=== PATIENT | male | born 1950 | race Caucasian/White ===

== ENCOUNTER → 2016-11-30 | Outpatient (CLI) | payer OTHER, MEDICARE | LOC: BHLMT 09:30 | PROVIDERS: ATTEND Internal Medicine Cardiovascular Disease | DX: I48.0 Paroxysmal atrial fibrillation (principal); I45.10 Unspecified right bundle-branch block; I49.1 Atrial premature depolarization | CPT/HCPCS: 93005-PO ==

== ENCOUNTER 2017-02-18 20:09 | Observation (INO) | payer OTHER, MEDICARE ==
--- NOTE | 2017-02-18 20:11 | EDPHY ---
HPI/HX/ROS/PE/MDM Narrative: CHIEF COMPLAINT: Syncope, dizziness HPI: The patient is a 66 y/o male, with a history of atrial flutter and aplastic anemia, arriving via EMS complaining of acute onset dizziness and subsequent syncope about 45 minutes ago. He was at a work dinner and felt a sudden contreras of dizziness, shortness of breath, and nausea. Per bystanders, he then lost consciousness and fell into another person before hitting the ground and suffering a small laceration to his face. He became alert within 1 minute. EMS reports he was initially hypotensive at 80/palp. His symptoms and blood pressure improved with 1L IV NS and 4mg IV Zofran en route. He denies chest pain , palpitations, dark or bloody stools, recent illness, or recent trauma. He notes he may have a taken double dose of beta blockers this morning and says he has "not felt great for the last couple days," but he is unable to further qualify this. He consumed 1/3 glass of wine tonight at dinner. REVIEW OF SYSTEMS: Aside from elements discussed in the HPI, a comprehensive 10-point review of systems was reviewed and is negative. PMH: 2014 - Subdural hematoma post craniotomy, TBI, ablation, palpitations, cardioversion 2015, aplastic anemia, hypertension - Metoprolol Prior medical records reviewed including PT report 06/01/14, and ED visit 02/15/15 for rapid heart rate with subsequent cardioversion SOCIAL HISTORY: Lives in [place]. . PHYSICAL EXAM: General:Patient is alert, in no acute distress. ENT:Eyes are normal to inspection. ENT inspection normal. Neck: Normal inspection. Full range of motion. Respiratory:No respiratory distress. Breath sounds normal bilaterally. Cardiovascular: Tachycardic irregular rate and rhythm. Strong peripheral pulses. Normal cap refill. Abdomen:The abdomen is nontender to palpation. There are no peritoneal signs. There are normal bowel sounds. Back: Normal to inspection. No tenderness to palpation. Skin: Normal color. No rash. Warm and dry. Small non-suturable laceration to left lateral face. Extremities: Normal appearance. Full range of motion. Neuro: Oriented x3. Normal motor function. Normal sensory function. ED Course: IV established by EMS. Labs drawn including CBC, CHEM, d-dimer, troponin. 1L IV NS administered. EKG and chest x-ray ordered. The 12 lead EKG was interpreted by myself. Sinus rhythm rate 71 with multiple PACs. RBBB and LPFB. See hard copy and/or "tracemaster" electronic copy for interpretation. 2025: Patient had an episode of atrial flutter on the monitor that spontaneously converted to sinus rhythm. 2109: Hct low at 22.9. He reports he has a history of aplastic anemia. Additional labs ordered including type&screen, occult stool, PTPTT, and LFTs. Patient will require admission for anemia. Study: Chest x-ray Indication: syncope Results: Chest x-ray was obtained. The results of the study are 1.Compensated CHF with chronic or recurrent pulmonary venous hypertension. 2. Likely a prominent right epicardial fat pad rather than right middle lobe atelectasis. The study was read by the radiologist, Dr. Michelle. I viewed the images myself on the PACS system. 2129: I was informed the Hct is not an accurate result. They are redoing labs at this time. 2217: Actual Hct is 42.4. I discussed findings with the patient and answered all his questions. He agrees to admission for atrial flutter and syncope. Spoke with hospitalist service. Dr. Ferguson accepts admission. - Data Points Laboratory Results: Laboratory Results 02/18/17 21:50 02/18/17 21:50 02/18/17 02/18/17 02/18/17 21:50 21:50 21:50 WBC 9.07 10^3/uL 10^3/uL (3.80-9.50) RBC 4.43 10^6/uL 10^6/uL (4.40-6.38) Hgb 14.7 g/dL g/dL (13.7-17.5) Hct 42.4 % D % (40.0-51.0) MCV 95.7 fL fL (81.5-99.8) MCH 33.2 pg pg (27.9-34.1) MCHC 34.7 g/dL g/dL (32.4-36.7) RDW 11.6 % % (11.5-15.2) Plt Count 194 10^3/uL D 10^3/uL (150-400) MPV 9.2 fL fL (8.7-11.7) Neut % (Auto) 81.8 % H % (39.3-74.2) Lymph % (Auto) 10.3 % L % (15.0-45.0) Worth % (Auto) 6.5 % % (4.5-13.0) Eos % (Auto) 0.8 % % (0.6-7.6) Baso % (Auto) 0.3 % % (0.3-1.7) Nucleat RBC Rel Count 0.0 % % (0.0-0.2) Absolute Neuts (auto) 7.42 10^3/uL H 10^3/uL (1.70-6.50) Absolute Lymphs (auto) 0.93 10^3/uL L 10^3/uL (1.00-3.00) Absolute Monos (auto) 0.59 10^3/uL 10^3/uL (0.30-0.80) Absolute Eos (auto) 0.07 10^3/uL 10^3/uL (0.03-0.40) Absolute Basos (auto) 0.03 10^3/uL 10^3/uL (0.02-0.10) Absolute Nucleated RBC 0.00 10^3/uL 10^3/uL (0-0.01) Immature Gran % 0.3 % % (0.0-1.1) Immature Gran # 0.03 10^3/uL 10^3/uL (0.00-0.10) PT 13.8 SEC SEC (12.0-15.0) INR 1.07 (0.83-1.16) APTT 23.2 SEC SEC (23.0-38.0) D-Dimer Sodium 136 mEq/L mEq/L (134-144) Potassium 4.4 mEq/L mEq/L (3.5-5.2) Chloride 106 mEq/L D mEq/L (97-110) Carbon Dioxide 24 mEq/l D mEq/l (22-31) Anion Gap 6 mEq/L L mEq/L (8-16) BUN 17 mg/dL mg/dL (7-23) Creatinine 1.0 mg/dL D mg/dL (0.7-1.3) Estimated GFR > 60 Glucose 95 mg/dL D mg/dL (70-100) Calcium 9.1 mg/dL D mg/dL (8.5-10.4) Total Bilirubin 1.2 mg/dL D mg/dL (0.1-1.4) Conjugated Bilirubin 0.4 mg/dL mg/dL (0.0-0.5) Unconjugated Bilirubin 0.8 mg/dL mg/dL (0.0-1.1) AST 23 IU/L IU/L (-59) ALT 38 IU/L IU/L (21-72) Alkaline Phosphatase 44 IU/L IU/L (38-126) Troponin I < 0.012 ng/mL ng/mL (0-0.034) Total Protein 6.2 g/dL L D g/dL (6.3-8.2) Albumin 3.8 g/dL D g/dL (3.5-5.0) Patient ABO/Rh Antibody Screen 02/18/17 02/18/17 02/18/17 21:30 21:13 21:13 WBC RBC Hgb Hct MCV MCH MCHC RDW Plt Count MPV Neut % (Auto) Lymph % (Auto) Worth % (Auto) Eos % (Auto) Baso % (Auto) Nucleat RBC Rel Count Absolute Neuts (auto) Absolute Lymphs (auto) Absolute Monos (auto) Absolute Eos (auto) Absolute Basos (auto) Absolute Nucleated RBC Immature Gran % Immature Gran # PT 21.4 SEC H SEC (12.0-15.0) INR 1.85 H (0.83-1.16) APTT 31.4 SEC SEC (23.0-38.0) D-Dimer Sodium Potassium Chloride Carbon Dioxide Anion Gap BUN Creatinine Estimated GFR Glucose Calcium Total Bilirubin 0.3 mg/dL mg/dL (0.1-1.4) Conjugated Bilirubin 0.2 mg/dL mg/dL (0.0-0.5) Unconjugated Bilirubin 0.1 mg/dL mg/dL (0.0-1.1) AST 5 IU/L L IU/L (-59) ALT 21 IU/L IU/L (21-72) Alkaline Phosphatase < 20 IU/L L IU/L (38-126) Troponin I Total Protein < 2.0 g/dL L g/dL (6.3-8.2) Albumin < 1.0 g/dL L g/dL (3.5-5.0) Patient ABO/Rh Pending Antibody Screen Pending 02/18/17 02/18/17 02/18/17 20:54 20:54 20:54 WBC 5.18 10^3/uL 10^3/uL (3.80-9.50) RBC 2.29 10^6/uL L 10^6/uL (4.40-6.38) Hgb 7.9 g/dL L g/dL (13.7-17.5) Hct 22.9 % L % (40.0-51.0) MCV 100.0 fL H fL (81.5-99.8) MCH 34.5 pg H pg (27.9-34.1) MCHC 34.5 g/dL g/dL (32.4-36.7) RDW 11.7 % % (11.5-15.2) Plt Count 107 10^3/uL L 10^3/uL (150-400) MPV 9.6 fL fL (8.7-11.7) Neut % (Auto) 81.5 % H % (39.3-74.2) Lymph % (Auto) 10.4 % L % (15.0-45.0) Worth % (Auto) 6.0 % % (4.5-13.0) Eos % (Auto) 1.5 % % (0.6-7.6) Baso % (Auto) 0.2 % L % (0.3-1.7) Nucleat RBC Rel Count 0.0 % % (0.0-0.2) Absolute Neuts (auto) 4.22 10^3/uL 10^3/uL (1.70-6.50) Absolute Lymphs (auto) 0.54 10^3/uL L 10^3/uL (1.00-3.00) Absolute Monos (auto) 0.31 10^3/uL 10^3/uL (0.30-0.80) Absolute Eos (auto) 0.08 10^3/uL 10^3/uL (0.03-0.40) Absolute Basos (auto) 0.01 10^3/uL L 10^3/uL (0.02-0.10) Absolute Nucleated RBC 0.00 10^3/uL 10^3/uL (0-0.01) Immature Gran % 0.4 % % (0.0-1.1) Immature Gran # 0.02 10^3/uL 10^3/uL (0.00-0.10) PT INR APTT D-Dimer < 0.27 ug/mLFEU ug/mLFEU (0.00-0.50) Sodium 144 mEq/L mEq/L (134-144) Potassium 1.2 mEq/L L* mEq/L (3.5-5.2) Chloride 133 mEq/L H mEq/L (97-110) Carbon Dioxide 9 mEq/l L* mEq/l (22-31) Anion Gap 2 mEq/L L mEq/L (8-16) BUN 6 mg/dL L mg/dL (7-23) Creatinine 0.3 mg/dL L mg/dL (0.7-1.3) Estimated GFR > 60 Glucose 30 mg/dL L* mg/dL (70-100) Calcium 2.2 mg/dL L* mg/dL (8.5-10.4) Total Bilirubin Conjugated Bilirubin Unconjugated Bilirubin AST ALT Alkaline Phosphatase Troponin I < 0.012 ng/mL ng/mL (0-0.034) Total Protein Albumin Patient ABO/Rh Antibody Screen Medications Given: Discontinued Medications Sodium Chloride (Ns) 1,000 mls @ 0 mls/hr IV ONCE ONE PRN Reason: Wide Open Stop: 02/18/17 20:15 Last Admin: 02/18/17 20:39 Dose: 1,000 mls General Initial Vital Signs: Initial Vital Signs Temperature (C) 36.5 C 02/18/17 20:26 Heart Rate 122 H 02/18/17 20:26 Respiratory Rate 18 02/18/17 20:26 Blood Pressure 126/70 H 02/18/17 20:26 O2 Sat (%) 93 02/18/17 20:26 O2 Delivery Mode Room Air Allergies/Adverse Reactions: No Known Allergies Allergy (Unverified 02/15/15 11:59) Home Medications: Medication Instructions Recorded Sotalol HCl [Betapace] 80 mg PO BID 02/15/15 Tamsulosin HCl [Flomax] 0.4 mg PO DAILY 02/15/15 Metoprolol Succinate 02/18/17 Departure - Departure Disposition: [facility] Inpatient Acute Clinical Impression: Syncope Qualifiers: Syncope type: unspecified Qualified Code(s): R55 - Syncope and collapse Atrial flutter Qualifiers: Atrial flutter type: unspecified Qualified Code(s): I48.92 - Unspecified atrial flutter Condition: Good Referrals: Patient,NotPresent [Unknown] - As per Instructions Report Scribed for: Junior Lee Report Scribed by: Damari Lama Date of Report: 02/18/17 Time of Report: 20:02 Physician Review and Approval Statement: Portions of this note were transcribed by an ED scribe. I personally performed the history, physical exam, and medical decision making; and confirm the accuracy of the information in the transcribed note.
[2017-02-18] MEDS ORDERED: NS 1,000 ML IV ONE (20:14)
--- NOTE | 2017-02-18 20:23 | CPEKG ---
Heart Rate: 71 RR Interval: 845 P-R Interval: 144 QRSD Interval: 166 QT Interval: 452 QTC Interval: 492 P [place]: -31 QRS [place]: 98 T Wave [place]: -3 EKG Severity - ABNORMAL ECG - EKG Impression: SINUS RHYTHM EKG Impression: MULTIPLE ATRIAL PREMATURE COMPLEXES -- New since February 15, 2015 EKG Impression: RBBB AND LPFB Electronically Signed By: Gonsalo Moore 19-Feb-2017 18:09:36
[2017-02-18 21:04] LABS: % IMMATURE GRANULYOCYTES 0.4 % (0.0-1.1); ABSOLUTE IMMATURE GRANULOCYTES 0.02 10^3/uL (0.00-0.10); ADD DIFF? NO; ADD MORPH? NO; ADD SCAN? NO; ATYPICAL LYMPHOCYTE FLAG 0 (0-99); FRAGMENT RBC FLAG 0 (0-99); HEMATOCRIT 22.9 % (40.0-51.0); HEMOGLOBIN 7.9 g/dL (13.7-17.5); LEFT SHIFT FLG 0 (0-99); LIPEMIA HEMOLYSIS FLAG 90 (0-99); MEAN CELL HEMOGLOBIN 34.5 pg (27.9-34.1); MEAN CELL HEMOGLOBIN CONCENTR. 34.5 g/dL (32.4-36.7); MEAN PLATELET VOLUME 9.6 fL (8.7-11.7); PLATELET CLUMPS FLAG 10 (0-99); PLATELET COUNT 107 10^3/uL (150-400); RED BLOOD CELL COUNT 2.29 10^6/uL (4.40-6.38); RED CELL DISTRIBUTION WIDTH 11.7 % (11.5-15.2)
[2017-02-18 21:26] LABS: INR 1.85 (0.83-1.16); PROTIME(PATIENT) 21.4 SEC (12.0-15.0)
[2017-02-18 21:27] LABS: APTT 31.4 SEC (23.0-38.0)
[2017-02-18 21:33] LABS: ANION GAP 2 mEq/L (8-16); CHLORIDE 133 mEq/L (97-110); CREATININE 0.3 mg/dL (0.7-1.3); GLOMERULAR FILTRATION RATE > 60; SODIUM 144 mEq/L (134-144)
[2017-02-18 21:35] LABS: ALANINE AMINOTRANSFERASE 21 IU/L (21-72); ASPARTATE AMINOTRANSFERASE 5 IU/L (17-59); BILIRUBIN,TOTAL 0.3 mg/dL (0.1-1.4); BILIRUBIN-CONJUGATED 0.2 mg/dL (0.0-0.5); BILIRUBIN-UNCONJUGATED 0.1 mg/dL (0.0-1.1)
[2017-02-18 21:37] LABS: CALCIUM 2.2 mg/dL (8.5-10.4); CARBON DIOXIDE 9 mEq/l (22-31); GLUCOSE 30 mg/dL (70-100); POTASSIUM 1.2 mEq/L (3.5-5.2)
[2017-02-18 21:38] LABS: ALBUMIN < 1.0 g/dL (3.5-5.0); TOTAL PROTEIN < 2.0 g/dL (6.3-8.2)
[2017-02-18 21:39] LABS: ALKALINE PHOSPHATASE < 20 IU/L (38-126)
[2017-02-18 21:44] LABS: TROPONIN I < 0.012 ng/mL (0-0.034)
[2017-02-18 22:03] LABS: % IMMATURE GRANULYOCYTES 0.3 % (0.0-1.1); ABSOLUTE IMMATURE GRANULOCYTES 0.03 10^3/uL (0.00-0.10); ADD DIFF? NO; ADD MORPH? NO; ADD SCAN? NO; ATYPICAL LYMPHOCYTE FLAG 0 (0-99); FRAGMENT RBC FLAG 0 (0-99); HEMATOCRIT 42.4 % (40.0-51.0); HEMOGLOBIN 14.7 g/dL (13.7-17.5); LEFT SHIFT FLG 0 (0-99); LIPEMIA HEMOLYSIS FLAG 90 (0-99); MEAN CELL HEMOGLOBIN 33.2 pg (27.9-34.1); MEAN CELL HEMOGLOBIN CONCENTR. 34.7 g/dL (32.4-36.7); MEAN CELL VOLUME 95.7 fL (81.5-99.8); MEAN PLATELET VOLUME 9.2 fL (8.7-11.7); PLATELET CLUMPS FLAG 0 (0-99); PLATELET COUNT 194 10^3/uL (150-400); RED BLOOD CELL COUNT 4.43 10^6/uL (4.40-6.38); RED CELL DISTRIBUTION WIDTH 11.6 % (11.5-15.2)
[2017-02-18 22:12] LABS: ANION GAP 6 mEq/L (8-16); CALCIUM 9.1 mg/dL (8.5-10.4); CARBON DIOXIDE 24 mEq/l (22-31); CHLORIDE 106 mEq/L (97-110); GLOMERULAR FILTRATION RATE > 60; GLUCOSE 95 mg/dL (70-100); POTASSIUM 4.4 mEq/L (3.5-5.2); SODIUM 136 mEq/L (134-144)
[2017-02-18 22:18] LABS: APTT 23.2 SEC (23.0-38.0); INR 1.07 (0.83-1.16); PROTIME(PATIENT) 13.8 SEC (12.0-15.0)
[2017-02-18 22:23] LABS: ALANINE AMINOTRANSFERASE 38 IU/L (21-72); ALBUMIN 3.8 g/dL (3.5-5.0); ALKALINE PHOSPHATASE 44 IU/L (38-126); ASPARTATE AMINOTRANSFERASE 23 IU/L (17-59); BILIRUBIN,TOTAL 1.2 mg/dL (0.1-1.4); BILIRUBIN-CONJUGATED 0.4 mg/dL (0.0-0.5); BILIRUBIN-UNCONJUGATED 0.8 mg/dL (0.0-1.1); TOTAL PROTEIN 6.2 g/dL (6.3-8.2)
[2017-02-18 22:24] LABS: TROPONIN I < 0.012 ng/mL (0-0.034)
[2017-02-18] MEDS ORDERED: ACETAMINOPHEN 325 MG TAB PO PRN (23:02)
[2017-02-19] MEDS ORDERED: NS 500 ML IV ONE (00:19)
[2017-02-19] MEDS ORDERED: NS 1,000 ML IV SCH (00:30)
--- NOTE | 2017-02-19 04:08 | PDGENHP ---
History and Physical - Chief Complaint syncope - History of Present Illness Patient was seen and examined on 02/18/2017. Patient is a 66-year-old male with history of known atrial fibrillation currently on metoprolol and sotalol for rate control, not on systemic anticoagulation, also history of TBI with minimal residual deficits, who presents to the ED after a syncopal episode. Patient states he was at a dinner green party, was walking from the kitchen to the dining room table with a bowl of soup in his hands when he was suddenly over come with dizziness, diaphoresis, nausea and darkening of his vision. Shortly thereafter patient lost consciousness, falling backwards into the arms of someone was standing directly behind him. Episode was witnessed by patient's and she states he did not hit his head on the floor, but he did suffer an abrasion to his left eye possibly from the bowl of soup. He aroused within a minute and EMS was called. On EMS arrival, patient was noted to be hypotensive and tachycardic to 140 range. He denies any chest pain associated with the incident. He also denies any recent fevers, chills, cough, congestion, shortness of breath , abdominal pain or vomiting. He does state that about 2 weeks ago he had some diarrhea associated with a lack of appetite, which had been improving over the past week. Arrival to the ED patient was afebrile, with normal BP however was tachycardic. EKG revealed AFib without obvious ischemic changes. Labs were within normal limits, including troponin (1st set of labs listed in [facility] were not correct) . He was given IV fluid resuscitation and admitted to the hospitalist service for further management. History Information - Allergies/Home Medication List Allergies/Adverse Reactions: No Known Allergies Allergy (Unverified 02/15/15 11:59) Home Medications: Sotalol HCl [Betapace] 80 mg PO BID 02/15/15 [Last Taken Unknown] Tamsulosin HCl [Flomax] 0.4 mg PO DAILY 02/15/15 [Last Taken Unknown] Metoprolol Succinate 02/18/17 [Last Taken Unknown] I have personally reviewed and updated: family history, medical history, social history, surgical history - Past Medical History Additional medical history: Afib/Aflutter s/p 3 cardioversions and 1 ablation, currently on metoprolol and sotalol for rate control. h/o TBI with resulting subdural hematoma. hypertension. aplastic anemia - Surgical History Additional surgical history: craniotomy. afib ablation. tonsillectomy. small bowel obstruction - Family History Positive for: diabetes type II - Social History Smoking Status: Never smoked Alcohol Use: Occasionally Drug Use: None Additional social history: Patient lives with his , continues to work. Review of Systems ROS: 10pt was reviewed & negative except for what was stated in HPI & below Physical Exam Temp Pulse Resp BP Pulse Ox 36.6 C 82 16 123/78 H 98 02/18/17 23:25 02/18/17 23:25 02/18/17 23:25 02/18/17 23:25 02/18/17 23:25 Constitutional: no apparent distress, appears nourished, not in pain Eyes: PERRL, anicteric sclera, EOMI Ears, Nose, Mouth, Throat: moist mucous membranes, hearing normal, ears appear normal, no oral mucosal ulcers Cardiovascular: no murmur, rub, or gallop, irregularly irregular, pulses symmetric bilaterally, No JVD, No edema Peripheral Pulses: 2+: dorsalis-pedis (R), dorsalis-pedis (L) Respiratory: no respiratory distress, no rales or rhonchi, clear to auscultation Gastrointestinal: normoactive bowel sounds, soft, non-tender abdomen, no palpable masses, No guarding, No rebound, No distension Genitourinary: no bladder fullness, no bladder tenderness Skin: warm, normal color, no fluctuance, no induration, other (small abrasion on L outer eyebrow), No mottled Musculoskeletal: full muscle strength, no muscle tenderness, normal joint ROM, no joint effusions Neurologic: AAOx3, sensation intact bilaterally, CN II-XII Intact, No weakness, No numbness, No pronator drift, No facial droop Psychiatric: interacting appropriately, not anxious, not encephalopathic, thought process linear Lab Data & Imaging Review 02/18/17 21:50 02/18/17 21:50 WBC 9.07 10^3/uL (3.80-9.50) 02/18/17 21:50 RBC 4.43 10^6/uL (4.40-6.38) 02/18/17 21:50 Hgb 14.7 g/dL (13.7-17.5) 02/18/17 21:50 Hct 42.4 % (40.0-51.0) D 02/18/17 21:50 MCV 95.7 fL (81.5-99.8) 02/18/17 21:50 MCH 33.2 pg (27.9-34.1) 02/18/17 21:50 MCHC 34.7 g/dL (32.4-36.7) 02/18/17 21:50 RDW 11.6 % (11.5-15.2) 02/18/17 21:50 Plt Count 194 10^3/uL (150-400) D 02/18/17 21:50 MPV 9.2 fL (8.7-11.7) 02/18/17 21:50 Neut % (Auto) 81.8 % (39.3-74.2) H 02/18/17 21:50 Lymph % (Auto) 10.3 % (15.0-45.0) L 02/18/17 21:50 [place] % (Auto) 6.5 % (4.5-13.0) 02/18/17 21:50 Eos % (Auto) 0.8 % (0.6-7.6) 02/18/17 21:50 Baso % (Auto) 0.3 % (0.3-1.7) 02/18/17 21:50 Nucleat RBC Rel Count 0.0 % (0.0-0.2) 02/18/17 21:50 Absolute Neuts (auto) 7.42 10^3/uL (1.70-6.50) H 02/18/17 21:50 Absolute Lymphs (auto) 0.93 10^3/uL (1.00-3.00) L 02/18/17 21:50 Absolute Monos (auto) 0.59 10^3/uL (0.30-0.80) 02/18/17 21:50 Absolute Eos (auto) 0.07 10^3/uL (0.03-0.40) 02/18/17 21:50 Absolute Basos (auto) 0.03 10^3/uL (0.02-0.10) 02/18/17 21:50 Absolute Nucleated RBC 0.00 10^3/uL (0-0.01) 02/18/17 21:50 Immature Gran % 0.3 % (0.0-1.1) 02/18/17 21:50 Immature Gran # 0.03 10^3/uL (0.00-0.10) 02/18/17 21:50 PT 13.8 SEC (12.0-15.0) 02/18/17 21:50 INR 1.07 (0.83-1.16) 02/18/17 21:50 APTT 23.2 SEC (23.0-38.0) 02/18/17 21:50 D-Dimer < 0.27 ug/mLFEU (0.00-0.50) 02/18/17 20:54 Sodium 136 mEq/L (134-144) 02/18/17 21:50 Potassium 4.4 mEq/L (3.5-5.2) 02/18/17 21:50 Chloride 106 mEq/L (97-110) D 02/18/17 21:50 Carbon Dioxide 24 mEq/l (22-31) D 02/18/17 21:50 Anion Gap 6 mEq/L (8-16) L 02/18/17 21:50 BUN 17 mg/dL (7-23) 02/18/17 21:50 Creatinine 1.0 mg/dL (0.7-1.3) D 02/18/17 21:50 Estimated GFR > 60 02/18/17 21:50 Glucose 95 mg/dL (70-100) D 02/18/17 21:50 Calcium 9.1 mg/dL (8.5-10.4) D 02/18/17 21:50 Magnesium 1.7 mg/dL (1.6-2.3) 02/18/17 21:50 Total Bilirubin 1.2 mg/dL (0.1-1.4) D 02/18/17 21:50 Conjugated Bilirubin 0.4 mg/dL (0.0-0.5) 02/18/17 21:50 Unconjugated Bilirubin 0.8 mg/dL (0.0-1.1) 02/18/17 21:50 AST 23 IU/L (17-59) 02/18/17 21:50 ALT 38 IU/L (21-72) 02/18/17 21:50 Alkaline Phosphatase 44 IU/L (38-126) 02/18/17 21:50 Troponin I < 0.012 ng/mL (0-0.034) 02/18/17 21:50 Total Protein 6.2 g/dL (6.3-8.2) L D 02/18/17 21:50 Albumin 3.8 g/dL (3.5-5.0) D 02/18/17 21:50 Patient ABO/Rh A POSITIVE 02/18/17 21:30 Antibody Screen NEGATIVE 02/18/17 21:30 Visualized and Interpreted Chest x-ray results: Yes Chest X-Ray results: no infiltrate Visualized and Interpreted EKG results: Yes EKG additional interpertation: afib without st/ t wave changes Assessment & Plan Assessment: Patient is a 66-year-old male with a history of atrial fib/flutter, hypertension , history of TBI who presents to the ED after syncopal episode. Plan: # syncope Etiology of syncope includes cardiac vs hypovolemic/orthostatic vs neurogenic/ vasovagal. Patient does report a history of diarrhea recently, which has largely resolved and labs do not indicate he is significantly dehydrated. Patient is nonfocal on exam, at his baseline neuro status. Suspect syncope was related to AF with RVR given his reported tachycardia and hypotension on EMS evaluation. Since arrival to ED, patient has converted to NSR. Will continue IVF hydration, check TTE and carotid dopplers and monitor cardiac enzymes/ serial EKGs to r/o acs. # Afib/Aflutter On sotalol and metoprolol for rhythm/rate control, but not presently on systemic anticoagulation. CHADSVaSC score is 2 (age, hypertension). Will assess with cardiology regarding risks/benefits of AC, given his prior history of TBI with intracranial hemorrhage (shouldn't be a contraindication). # hypertension BP stable after IVF resuscitation. # dispo: admit to observation for syncope work up # gen: NPO Full code
[2017-02-19] MEDS ORDERED: PROTOCOL POTASSIUM 1 DOSE MISC PRN (04:10)
[2017-02-19] MEDS ORDERED: MAGNESIUM SULF 1 GM/DEXTROSE 100 ML IV ONE (04:10)
[2017-02-19] MEDS ORDERED: PROTOCOL MAGNESIUM 1 DOSE IV PRN (04:10)
[2017-02-19 05:14] LABS: % IMMATURE GRANULYOCYTES 0.4 % (0.0-1.1); ABSOLUTE IMMATURE GRANULOCYTES 0.02 10^3/uL (0.00-0.10); ADD DIFF? NO; ADD MORPH? NO; ADD SCAN? NO; ATYPICAL LYMPHOCYTE FLAG 0 (0-99); FRAGMENT RBC FLAG 0 (0-99); HEMATOCRIT 37.8 % (40.0-51.0); LEFT SHIFT FLG 0 (0-99); LIPEMIA HEMOLYSIS FLAG 90 (0-99); MEAN CELL HEMOGLOBIN 33.1 pg (27.9-34.1); MEAN CELL HEMOGLOBIN CONCENTR. 34.4 g/dL (32.4-36.7); MEAN CELL VOLUME 96.2 fL (81.5-99.8); MEAN PLATELET VOLUME 9.4 fL (8.7-11.7); PLATELET CLUMPS FLAG 0 (0-99); PLATELET COUNT 177 10^3/uL (150-400); RED BLOOD CELL COUNT 3.93 10^6/uL (4.40-6.38); RED CELL DISTRIBUTION WIDTH 11.8 % (11.5-15.2)
[2017-02-19 05:28] LABS: ANION GAP 7 mEq/L (8-16); CALCIUM 8.6 mg/dL (8.5-10.4); CARBON DIOXIDE 21 mEq/l (22-31); CHLORIDE 109 mEq/L (97-110); CREATININE 0.8 mg/dL (0.7-1.3); GLOMERULAR FILTRATION RATE > 60; GLUCOSE 109 mg/dL (70-100); MAGNESIUM 1.9 mg/dL (1.6-2.3); POTASSIUM 4.1 mEq/L (3.5-5.2); SODIUM 137 mEq/L (134-144)
[2017-02-19 05:40] LABS: TROPONIN I < 0.012 ng/mL (0-0.034)
--- NOTE | 2017-02-19 11:08 | ECHO ---
[id number] + + [address] : : [place] [address] : : [phone] + + Adult Echocardiographic Report + ------+ :Name: BLADIMIR MARVIN PStudy Date: 02/19/2017 08:11 AM : : Hospital Admission Number: [id number] Locatio n: 141: :: 1950 Gender: Male Height: 73 in : :Age: 66 yrs Race: WH Weight: 222 lb : :Reason For Study: Afib/Aflutter with syncope : : BSA: 2.2 meters 2 : + ------+ MMode/2D Measurements \T\ Calculations IVSd: 1.5 cm LVIDd: 4.8 cm FS: 37.5 % Ao root diam: 4.0 cm LVPWd: 0.88 cm LVIDs: 3.0 cm EDV(Teich): 107.5 ml LA dimension: 4.5 cm ESV(Teich): 35.0 ml EF(Teich): 67.4 % Normal Measurement Values: + + :LVIDd (3.5-5.7cm) IVSd (0.6-1.1cm) LVPWd (0.6-1.1cm) Aortic Root (2.0-3.7cm)Left Atrium (1.5-4.0cm): :LV Vol(d) (76-115ml) LV Vol(s) (29-48ml) Ejec Fraction (50-65%)PV Calvin (0.6- 1.2m/s) TV Calvin (0.4-1.0m/s) : :MV E Calvin (0.8-1.0m/s)MV A Calvin (0.3-1.0m/s)LVOT Calvin (0.7-1.2m/s) Asc Ao Calvin ( 0.9-1.8m/s) : + + Doppler Measurements \T\ Calculations MV E max calvin: 73.1 cm/sec Ao V2 max: 120.3 cm/sec TR max calvin: 258.0 cm/sec MV A max calvin: 44.4 cm/sec Ao max P.8 mmHg TR max P.6 mmHg MV E/A: 1.6 RAP systole: 5.0 mmHg RVSP(TR): 31.6 mmHg Left Ventricle The left ventricle is normal in size. There is mild concentric left ventricular hypertrophy. Left ventricular systolic function is normal. Ejection Fraction = 65-70%. No regional wall motion abnormalities noted. Right Ventricle The right ventricle is normal in size and function. Atria The left atrial size is normal. Right atrial size is normal. The interatrial septum is intact with no evidence for an atrial septal defect. Mitral Valve The mitral valve is normal in structure and function. There is no evidence of mitral valve prolapse. There is no mitral valve stenosis. Tricuspid Valve Normal tricuspid valve. There is trace tricuspid regurgitation. Aortic Valve The aortic valve is trileaflet. The aortic valve opens well. There is no aortic stenosis. There is no aortic insufficiency. Pulmonic Valve The pulmonic valve is normal in structure and function. There is no pulmonic valvular regurgitation. Great Vessels The aortic root is normal size. Pericardium/Pleural There is no pericardial effusion. Conclusion A complete two-dimensional transthoracic echocardiogram was performed (2D, M-mode, Doppler and color flow Doppler). Left ventricular systolic function is normal. There is mild concentric left ventricular hypertrophy. Ejection Fraction = 65-70%. There is trace tricuspid regurgitation. Final Reading Physician: Landon Gimenez signed on 02/19/2017 11:07 AM Ordering Physician: Soledad Ferguson Performed By: Bridgette Grande, CHRISCS
[2017-02-19] MEDS ORDERED: METOPROLOL TARTRATE 25 MG TAB PO SCH (11:30)
[2017-02-19] MEDS ORDERED: VITAMIN B COMPLEX 1 EA CAP/TAB PO SCH ×2 (11:30)
[2017-02-19] MEDS ORDERED: TAMSULOSIN HCL 0.4 MG CAP PO SCH (11:30)
[2017-02-19] MEDS ORDERED: SOTALOL HCL 80 MG TAB PO SCH (11:30)
--- NOTE | 2017-02-19 11:45 | HOSPPROG ---
Hospitalist Progress Note Assessment/Plan: 66 yo M w orthostatic syncope neg eval home today see dc summary Subjective: no events tele. echo normal. carotid w non flow limiting disease Objective: Vital Signs Temp Pulse Resp BP Pulse Ox 36.6 C 73 15 102/61 93 02/19/17 07:44 02/19/17 07:44 02/19/17 07:44 02/19/17 07:44 02/19/17 07:44 Laboratory Results 02/19/17 05:00 02/19/17 05:00 02/18/17 02/19/17 02/20/17 05:59 05:59 05:59 Intake Total 1000 Balance 1000 PT 13.8 SEC (12.0-15.0) 02/18/17 21:50 INR 1.07 (0.83-1.16) 02/18/17 21:50 - Physical Exam Constitutional: no apparent distress, appears nourished, not in pain Eyes: PERRL, anicteric sclera Ears, Nose, Mouth, Throat: moist mucous membranes, hearing normal Cardiovascular: regular rate and rhythym, no murmur, rub, or gallop Respiratory: no respiratory distress, no rales or rhonchi Gastrointestinal: normoactive bowel sounds, soft, non-tender abdomen Skin: warm Musculoskeletal: full muscle strength, no muscle tenderness Neurologic: AAOx3 ICD10 Worksheet Patient Problems: Problems Problem Status Onset Atrial flutter Acute Syncope Acute
[2017-02-19 11:57] VITALS: BP 115/65; PULSE 71; RESP 11; TEMP 97.5; O2SAT 92
--- NOTE | 2017-02-19 12:08 | GDS ---
[f rep st] DISCHARGE SUMMARY DISCHARGE DIAGNOSES: 1. Orthostatic syncope. 2. History of intermittent atrial fibrillation. Please see admission history and physical by Dr. Soledad Ferguson. The patient presented with sync ope that happened when he was walking, had a prodrome of lightheadedness, dizziness. He felt poorly afterwards. Workup includes normal echo, negative troponins. No chest pain. Normal telemetry, without bradycardia or ventricular arrhythmia. He had a carotid ultrasound showing mild atherosclerosis. He may have taken an extra dose of metoprolol, which would have put him at risk f or these symptoms. The patient is doing well today and discharged home. Given the atherosclerosis seen on carotid ultrasound, I have recommend him to take a baby aspirin. /[id number]/MODL
[2017-02-20] MEDS ORDERED: VITAMIN B COMPLEX 1 EA CAP/TAB PO SCH (09:00)
== END 2017-02-19 13:18 | disposition home or self-care (01) ==
LOC: EDUNIT# → F1N 23:53
PROVIDERS: ADMIT Internal Medicine; ATTEND Internal Medicine
DX: R55 Syncope and collapse (principal); I48.91 Unspecified atrial fibrillation; I70.8 Atherosclerosis of other arteries; D61.9 Aplastic anemia, unspecified; I48.92 Unspecified atrial flutter; S00.91XA Abrasion of unspecified part of head, initial encounter; W19.XXXA Unspecified fall, initial encounter; Y92.010 Kitchen of single-family (private) house as the place of occurrence of the external cause; I10 Essential (primary) hypertension; I50.9 Heart failure, unspecified; I27.2 Other secondary pulmonary hypertension; Z87.820 Personal history of traumatic brain injury
CPT/HCPCS: 71020; 93005; 93306; 93880; G0378; J3475

== ENCOUNTER 2017-12-18 10:19 | Inpatient (IN) | payer OTHER, MEDICARE ==
--- NOTE | 2017-12-18 12:32 | CPEKG ---
Heart Rate: 49 RR Interval: 1224 P-R Interval: 144 QRSD Interval: 170 QT Interval: 496 QTC Interval: 448 P [place]: -37 QRS [place]: 103 T Wave [place]: 64 EKG Severity - ABNORMAL ECG - EKG Impression: SINUS BRADYCARDIA EKG Impression: RBBB AND LPFB EKG Impression: COMPARED WITH 02/18/2017, HR SLOWER, ECTOPY RESOLVED Electronically Signed By: Radha Rocha 18-Dec-2017 14:24:58
[2017-12-18] MEDS: ASPIRIN EC 81 MG TAB PO SCH (14:27)
[2017-12-18] MEDS: TAMSULOSIN HCL 0.4 MG CAP PO SCH (14:28)
[2017-12-18] MEDS: SOTALOL HCL 80 MG TAB PO SCH ×2 (14:33→20:57)
[2017-12-18 14:40] LABS: PLATELET COUNT 175 10^3/uL (150-400)
[2017-12-18 14:54] LABS: INR 0.95 (0.83-1.16); PROTIME(PATIENT) 12.9 SEC (12.0-15.0)
--- NOTE | 2017-12-18 16:49 | CPEKG ---
Heart Rate: 51 RR Interval: 1176 P-R Interval: 140 QRSD Interval: 174 QT Interval: 480 QTC Interval: 443 P [place]: -32 QRS [place]: 110 T Wave [place]: 55 EKG Severity - ABNORMAL ECG - EKG Impression: SINUS RHYTHM EKG Impression: MULTIPLE ATRIAL PREMATURE COMPLEXES EKG Impression: RBBB AND LPFB EKG Impression: COMPARED WITH 12/18/2017 AT 12:31 P.M., ATRIAL ECTOPY NOW PRESENT Electronically Signed By: Radha Rocha 19-Dec-2017 13:28:03
--- NOTE | 2017-12-18 18:30 | PDCARPN ---
Cardiology Progress Note Chief Complaint: Atrial Fib/ Flutter Assessment/Plan: Assessment: Atrial Fib/ Flutter intermittently. He had been on Sotolol and his QTC became too long and he was taken off Sotolol and started on Metoprolol. He presents to hospital for Reload of Sotolol as he felt better on the Sotolol than on Metoprolol. He tool last dose of Metoprolol last danette. His resting HR is 50 bpm. He states this is normal for him. His EKG shows Sinus Rhythm with PAC's, RBBB. QTcF 464, QTcB 448. EKG reviewed by Dr De Anda with recommendation for Sotolol 120 mg BID to be started. Very difficult getting IV access for PRN need. Sotolol started 2:30 with EKG 2 hours after dose. 4:30 EKG shows Sinus Rhythm, with multiple PAC's. He is tolerating it well HR 50's bpm. Next Sotolol dose to be given 11 PM. EKG 2 hrs later. Plan: Continue with Sotolol Load. 12/18/17 18: Subjective: Feels good with no dizziness, SOB, or chest pain. Reviewed/Discussed With: multidisciplinary team Time Spent With Patient: 30 minutes. Objective: Vital Signs (8 Hrs) Temp Pulse Resp BP Pulse Ox 12/18/17 15:41 36.9 C 56 L 16 117/68 92 12/18/17 11:44 50 L 16 137/63 H 94 12/18/17 10:43 36.8 C 51 L 16 112/64 95 Intake/Output (24 Hrs) 12/17/17 12/18/17 12/19/17 05:59 05:59 05:59 Intake Total 1250 Balance 1250 Intake: Oral (ml) 1250 Other: Weight 108.6 kg Result Diagrams: 12/18/17 14:30 12/19/17 03:34 - Physical Exam Constitutional: no apparent distress Cardiovascular: regular rate and rhythm, no murmurs, no rubs, no gallops Respiratory: clear to auscultate bilat, no crackles, no wheezes Gastrointestinal: no tenderness, No ascites Skin: no rashes, warm, no edema Musculoskeletal: No no muscular tenderness Neurologic: AAOx3 Psychiatric: cooperative, interactive ICD10 Worksheet Patient Problems: Problems Problem Status Onset Atrial flutter Acute Syncope Acute
--- NOTE | 2017-12-18 22:56 | CPEKG ---
Heart Rate: 51 RR Interval: 1176 QRSD Interval: 172 QT Interval: 500 QTC Interval: 461 QRS [place]: 96 T Wave [place]: 30 EKG Severity - ABNORMAL ECG - EKG Impression: sinus rhythm with PACs EKG Impression: RBBB AND LPFB Electronically Signed By: Radha Rocha 19-Dec-2017 13:27:33
[2017-12-19 04:50] LABS: INR 0.97 (0.83-1.16); PROTIME(PATIENT) 13.1 SEC (12.0-15.0)
[2017-12-19] MEDS: TAMSULOSIN HCL 0.4 MG CAP PO SCH (08:50)
[2017-12-19] MEDS: ASPIRIN EC 81 MG TAB PO SCH (08:50)
[2017-12-19] MEDS: SOTALOL HCL 80 MG TAB PO SCH ×2 (08:51→20:02)
--- NOTE | 2017-12-19 10:06 | ASMTCASEMG ---
Living Arrangements What is your living Answers: With Spouse arrangement? Who do you live with? Type Of Residence What kind of residence do Answers: House you live in? Discharge Plan Comments Coordination Status Comments Notes: Pt is a 67 y/o man admitted for sotalol loading. Pt will most likely d/c independent when medically stable. No therapies ordered at this time. CM available for changes. Plan: Independent Date Signed: 12/19/2017 10:05 AM Electronically Signed By:THIEN Yin
--- NOTE | 2017-12-19 10:33 | PDCARPN ---
Cardiology Progress Note Assessment/Plan: Assessment: Atrial Fib/ Flutter intermittently. He had been on Sotolol and his QTC became too long and he was taken off Sotolol and started on Metoprolol. He presents to hospital for Reload of Sotolol as he felt better on the Sotolol than on Metoprolol. He tool last dose of Metoprolol last danette. His resting HR is 50 bpm. He states this is normal for him. His EKG shows Sinus Rhythm with PAC's, RBBB. QTcF 464, QTcB 448. EKG reviewed by Dr De Anda with recommendation for Sotolol 120 mg BID to be started. Very difficult getting IV access for PRN need. Sotolol started 2:30 with EKG 2 hours after dose. 4:30 EKG shows Sinus Rhythm, with multiple PAC's. He is tolerating it well HR 50's bpm. Next Sotolol dose to be given 11 PM. EKG 2 hrs later. Plan: Continue with Sotolol Load. 12/18/17 18: 12/19/17 10:28 Tolerating the Sotolol well with HR low 50's. No dizziness, lightheadedness, or low BP. QTc remains stable and will continue with loading. He has a Head CT scheduled for today at 11:00. Once those results are available we will determine if he can be placed on OAC for anticoagulation. Meanwhile he continues on ASA 81 mg due to past traumatic head injury causing brain hematoma. He has been up ambulating remaining asymptomatic. Continue with Sotolol Load. 12/19/17 15:30 CT results will go to Dr Nevarez, Neurology. He will make the determination if John Paul is able to get started on OAC. Dr Nevarez's office was notified that the CT has been done. He will continue on ASA 81 mg QD. He has been up ambulating with no problems. Dr De Anda did visit him today. He has made no changes to plan of care. 12/19/17 17:08 Dr Nevarez's office called and OK'd use of OAC's. Lauri would like to visit with Dr De Anda about starting OAC. He continues to do well with no dizziness, lightheadedness or hypotension. HR remains low 50's. Objective: Vital Signs (8 Hrs) Temp Pulse Resp BP Pulse Ox 12/19/17 08:00 36.7 C 50 L 18 121/64 H 92 12/19/17 03:48 36.6 C 48 L 12 103/59 L 92 Intake/Output (24 Hrs) 12/18/17 12/19/17 12/20/17 05:59 05:59 05:59 Intake Total 1550 Balance 1550 Intake: Oral (ml) 1550 Other: Weight 108.6 kg Number of Voids Toilet 2 Result Diagrams: 12/18/17 14:30 12/19/17 03:34 - Physical Exam Constitutional: no apparent distress Cardiovascular: regular rate and rhythm, other (with PAC's) Respiratory: clear to auscultate bilat, no crackles, no wheezes Skin: warm, no edema Neurologic: AAOx3 Psychiatric: cooperative, interactive ICD10 Worksheet Patient Problems: Problems Problem Status Onset Atrial flutter Acute Syncope Acute
--- NOTE | 2017-12-19 11:15 | CPEKG ---
Heart Rate: 51 RR Interval: 1176 P-R Interval: 148 QRSD Interval: 168 QT Interval: 480 QTC Interval: 443 P [place]: -35 QRS [place]: 104 T Wave [place]: 61 EKG Severity - ABNORMAL ECG - EKG Impression: SINUS RHYTHM EKG Impression: RBBB AND LPFB EKG Impression: compared with 12/18/2017 at 10:54 p.m., atrial ectopy resolved Electronically Signed By: Radha Rocha 19-Dec-2017 13:21:38
--- NOTE | 2017-12-19 21:54 | CPEKG ---
Heart Rate: 57 RR Interval: 1053 P-R Interval: 160 QRSD Interval: 170 QT Interval: 468 QTC Interval: 456 P [place]: -26 QRS [place]: 88 T Wave [place]: 27 EKG Severity - ABNORMAL ECG - EKG Impression: SINUS RHYTHM EKG Impression: RBBB AND LPFB Electronically Signed By: Radha Rocha 20-Dec-2017 18:14:12
[2017-12-20] MEDS: ASPIRIN EC 81 MG TAB PO SCH (09:01)
[2017-12-20] MEDS: TAMSULOSIN HCL 0.4 MG CAP PO SCH (09:01)
[2017-12-20] MEDS: SOTALOL HCL 80 MG TAB PO SCH (09:02)
--- NOTE | 2017-12-20 10:46 | CPEKG ---
Heart Rate: 56 RR Interval: 1071 P-R Interval: 160 QRSD Interval: 172 QT Interval: 476 QTC Interval: 460 P [place]: -21 QRS [place]: 89 T Wave [place]: 27 EKG Severity - ABNORMAL ECG - EKG Impression: SINUS RHYTHM EKG Impression: RBBB AND LPFB Electronically Signed By: Radha Rocha 20-Dec-2017 18:13:39
[2017-12-20 11:22] VITALS: BP 139/68; PULSE 59; RESP 16; TEMP 97.9; O2SAT 95
--- NOTE | 2017-12-20 13:56 | ASDISCHSUM ---
Discharge Information Plan Status:Home with No Needs Medically Cleared to Leave:12/19/2017 Discharge Date:12/20/2017 12:02 PM D/C Disposition: ADT D/C Disposition:Home, Routine, Self-Care Projected Discharge Date:12/20/2017 12:00 AM Transportation at D/C: Discharge Delay Reason: Follow-Up Date:12/20/2017 12:00 AM Discharge Slot: Final Diagnosis: Placement Information Patient Contact Information Contact Name:DAFNE Relationship: Address:[address] [place] Work Phone: City:[place] [facility] Phone: [facility]/Zip Code:[place] [address] Email: Financial Information Financial Class: Primary Plan Desc:MEDICARE INPATIENT Primary Plan Number:[id number] Secondary Plan Desc:[employer]/MDR SUPPLEMENT Secondary Plan Number:[id number] Assessment Information [facility] Initial CM Assessment Living Arrangements What is your living Answers: With Spouse arrangement? Who do you live with? Type Of Residence What kind of residence do Answers: House you live in? Discharge Plan Comments Coordination Status Comments Notes: Pt is a 67 y/o man admitted for sotalol loading. Pt will most likely d/c independent when medically stable. No therapies ordered at this time. CM available for changes. Plan: Independent Date Signed: 12/19/2017 10:05 AM Electronically Signed By:THIEN Yin Intervention Information Intervention Type:*IM-Signed Date of Service:12/20/2017 10:57 AM Patient Type:Inpatient Staff Member:Shilpi Banegas Hours: Discipline: Severity: Comment:
--- NOTE | 2017-12-20 14:35 | GDS ---
[f rep st] DISCHARGE SUMMARY DISCHARGE DIAGNOSES: 1. Paroxysmal atrial fibrillation and flutter. 2. History of intracranial bleed due to mechanical fall status post ventriculostomy. 3. History of previous ablations in 2005 and 2006. PROCEDURES: 1. Serial EKGs. 2. On 12/19/2017, head CT, which showed no acute intracranial abnormality seen. Encephalomalacia pr esumably from previous trauma right frontal, anterior temporal and left lateral cerebellum. [place] hol es are noted. BRIEF HISTORY: Please see dictated H and P from Dr. Leonardo for complete details. In brief, the patien william is a 67-year-old male with a history of atrial fibrillation and flutter. He had previous atrial fi brillation and flutter ablations in 2005 in 2006. After these procedures he was placed on sotalol. Due to prolonged QTc, his sotalol dosing was discontinued. In 2013, he had a fall with significant in tracranial bleed requiring ventriculostomy. He was deemed an oral anticoagulation candidate and will be started on Pradaxa. HOSPITAL COURSE BY PROBLEM: 1. PAF and PA flutter. He has tolerated sotalol titration. He is being discharged on sotalol 120 p. o. twice daily. He has been given a prescription for Pradaxa which he is to start today. 2. Intracranial bleed. He has no evidence of recurrent bleed. He is deemed safe by Neurosurgery to start on his Pradaxa. RESULTS PENDING: None. DIET: Per previous. ACTIVITY: As tolerated. DISCHARGE MEDICATIONS: Please see med reconciliation for complete details. He is being discharged o n his home vitamin B, Flomax vitamin C. His new prescription is for sotalol 120 p.o. twice daily, an d dabigatran 150 p.o. twice daily. PHYSICAL EXAM: VITAL SIGNS: On the day of discharge, blood pressure 139/60, heart rate 59, respirat ions 16, O2 saturation 95% on room air, temp of 97.9 degrees Fahrenheit. GENERAL: He is a pleasant ma n in no apparent distress. HEENT: Normocephalic atraumatic. Eyes are without scleral icterus. HEA RT: Regular rate and rhythm. LUNGS: Clear. NEUROLOGIC: Intact. LABORATORY DATA: CBC: WBC 5.04, hemoglobin 14, hematocrit 39.5, platelet count of 175. BMP with sodi um 139, potassium 4.3, chloride 107, CO2 22, BUN 14, creatinine 0.8, glucose 94. A 12-lead ECG, pers onally interpreted, demonstrates sinus rhythm with a right bundle branch block and a left posterior f ascicular block, QTc 460. DISCHARGE INSTRUCTIONS: 1. Discharged to home. 2. Follow up with Dr. De Anda in 3-4 weeks time. /[id number]/MODL
== END 2017-12-20 12:02 | disposition home or self-care (01) | DRG 310 ==
LOC: F2W 10:19
PROVIDERS: ADMIT Internal Medicine Cardiovascular Disease; ATTEND Internal Medicine Cardiovascular Disease
DX: I48.0 Paroxysmal atrial fibrillation (principal); I48.92 Unspecified atrial flutter; Z87.820 Personal history of traumatic brain injury; Z98.2 Presence of cerebrospinal fluid drainage device

== ENCOUNTER 2018-03-13 13:42 | Observation (INO) | payer OTHER, MEDICARE ==
--- NOTE | 2018-03-13 13:57 | CPEKG ---
Heart Rate: 138 RR Interval: 435 QRSD Interval: 150 QT Interval: 360 QTC Interval: 546 P [place]: 0 QRS [place]: 101 T Wave [place]: -25 EKG Severity - ABNORMAL ECG - EKG Impression: SINUS TACHYCARDIA EKG Impression: RBBB AND LPFB Electronically Signed By: Carmen Luke 13-Mar-2018 21:37:58
--- NOTE | 2018-03-13 14:08 | EDPHY ---
HPI/HX/ROS/PE/MDM Narrative: CHIEF COMPLAINT: Rapid heart rate, dizzy HISTORY OF PRESENT ILLNESS: The patient is a 67 y/o male with a history of A-fib and a TBI, complaining of a rapid heart rate and dizziness onset 2.5 days ago. While he was sleeping 2.5 days ago he went into A-fib which woke him up. He normally converts in a short amount of time, but he was unable to naturally convert this time. His heart rate did feel irregular and pounding yesterday, but this has not occurred today. He has also felt more indigestion and heart burn as well as mild exertional shortness of breath since the a-fib started. Yesterday, while standing up he became extremely dizzy and felt like he might faint. He has baseline dizziness due to a TBI, but it has been worse since the a-fib started. As he has been unable to convert back to a normal rhythm, he decided to present to the emergency department today. Takes baby aspirin and Sotalol daily for a- fib. Denies cardiac stents, CAD, CHF, asthma, emphysema, stroke, numbness in arms or legs, swelling in legs. No fever, chills, chest pain, shortness of breath, vomiting, diarrhea, urinary complaints, headache, lightheadedness. REVIEW OF SYSTEMS: Aside from elements discussed in the HPI, a comprehensive 10-point review of systems was reviewed and is negative. PAST MEDICAL HISTORY: Atrial fibrillation, TBI SOCIAL HISTORY: Lives in [place], , retired, denies alcohol or tobacco use , followed by Dr. De Anda, finance administrator. VITAL SIGNS: Reviewed by me GENERAL: Well-developed, well-nourished, resting comfortably in no respiratory distress. HEENT: Atraumatic. Eyes: No icterus, no injection. Mouth: moist mucous membranes. No erythema or lesions. Neck: supple with no adenopathy. LUNGS: Clear to auscultation bilaterally, no wheezes, rhonchi or rales. CARDIAC: Mostly regular tachycardia with one premature beat, no rubs, murmurs or gallops. ABDOMEN: Soft, nontender, nondistended, bowel sounds normal. BACK: No CVA tenderness. EXTREMITIES: No trauma. No edema. Range of motion is normal throughout. NEURO: Alert and oriented, grossly nonfocal. SKIN: Warm and dry, no rash. PSYCHIATRIC: Normal mentation, no agitation. Portions of this note were transcribed by a medical device sales representative. I personally performed a history, physical exam, medical decision making, and confirmed accuracy of information the transcribed note. ED Course: The patient is a 67 y/o male with a history of A-fib and a TBI, complaining of a rapid heart rate and dizziness onset 2.5 days ago. He is normally able to convert out of a-fib naturally, but has been unable to for the past 2.5 days. On exam he has a primarily regular tachycardic heart rate. Labs and EKG ordered. 243 mg PO Aspirin given. 1354: 12-LEAD EKG: Please see the full report in [facility]. My interpretation : RBBB, and LPFB, tachycardic rate, probable atrial flutter. 1355: 10mg IV Diltiazem and 500mL IV NS given for rate control. Heart rate briefly decreased to the 80s with flutter waves visualized, varying rate, however patient's heart rate was noted to increase gradually back to the 120s. He will be placed on a diltiazem drip. 1529: Spoke with hospitalist service, Dr. Jaimes accepts admission of this patient. 1537: Reassessed patient and discussed laboratory and EKG findings. I have also discussed plan for admission, he is comfortable with this plan. 1642: Consulted with Robert Franz, finance administrator, regarding this patient. He agrees to consult on this patient. MDM: Differential diagnoses for the patient's sensation of palpitations was considered including but not limited to sinus tachycardia, PACs, PVCs, SVT, atrial fibrillation, atrial flutter, anxiety, panic attack. - Data Points Laboratory Results: Laboratory Results 03/13/18 14:12 03/13/18 14:12 03/13/18 03/13/18 03/13/18 14:12 14:12 14:12 WBC RBC Hgb Hct MCV MCH MCHC RDW Plt Count MPV Neut % (Auto) Lymph % (Auto) [place] % (Auto) Eos % (Auto) Baso % (Auto) Nucleat RBC Rel Count Absolute Neuts (auto) Absolute Lymphs (auto) Absolute Monos (auto) Absolute Eos (auto) Absolute Basos (auto) Absolute Nucleated RBC Immature Gran % Immature Gran # PT INR APTT Sodium 141 mEq/L mEq/L (135-145) Potassium 5.0 mEq/L mEq/L (3.5-5.2) Chloride 106 mEq/L mEq/L (97-110) Carbon Dioxide 21 mEq/l L mEq/l (22-31) Anion Gap 14 mEq/L mEq/L (8-16) BUN 17 mg/dL mg/dL (7-23) Creatinine 0.9 mg/dL mg/dL (0.7-1.3) Estimated GFR > 60 Glucose 96 mg/dL mg/dL (70-100) Calcium 9.8 mg/dL mg/dL (8.5-10.4) Magnesium 1.8 mg/dL mg/dL (1.6-2.3) Total Bilirubin 1.1 mg/dL mg/dL (0.1-1.4) Conjugated Bilirubin 0.5 mg/dL mg/dL (0.0-0.5) Unconjugated Bilirubin 0.6 mg/dL mg/dL (0.0-1.1) AST 27 IU/L IU/L (17-59) ALT 53 IU/L IU/L (21-72) Alkaline Phosphatase 55 IU/L IU/L (38-126) Creatine Kinase 43 IU/L IU/L (0-224) CK-MB (CK-2) Fraction 0.35 ng/mL ng/mL (0.00-3.19) Troponin I Cancelled < 0.012 ng/mL ng/mL (0.000-0.034) Total Protein 7.5 g/dL g/dL (6.3-8.2) Albumin 4.5 g/dL g/dL (3.5-5.0) 03/13/18 03/13/18 14:12 14:12 WBC 6.62 10^3/uL 10^3/uL (3.80-9.50) RBC 4.99 10^6/uL 10^6/uL (4.40-6.38) Hgb 16.2 g/dL g/dL (13.7-17.5) Hct 46.7 % % (40.0-51.0) MCV 93.6 fL fL (81.5-99.8) MCH 32.5 pg pg (27.9-34.1) MCHC 34.7 g/dL g/dL (32.4-36.7) RDW 12.1 % % (11.5-15.2) Plt Count 248 10^3/uL 10^3/uL (150-400) MPV 9.3 fL fL (8.7-11.7) Neut % (Auto) 50.8 % % (39.3-74.2) Lymph % (Auto) 34.1 % % (15.0-45.0) [place] % (Auto) 9.8 % % (4.5-13.0) Eos % (Auto) 4.5 % % (0.6-7.6) Baso % (Auto) 0.6 % % (0.3-1.7) Nucleat RBC Rel Count 0.0 % % (0.0-0.2) Absolute Neuts (auto) 3.36 10^3/uL 10^3/uL (1.70-6.50) Absolute Lymphs (auto) 2.26 10^3/uL 10^3/uL (1.00-3.00) Absolute Monos (auto) 0.65 10^3/uL 10^3/uL (0.30-0.80) Absolute Eos (auto) 0.30 10^3/uL 10^3/uL (0.03-0.40) Absolute Basos (auto) 0.04 10^3/uL 10^3/uL (0.02-0.10) Absolute Nucleated RBC 0.00 10^3/uL 10^3/uL (0-0.01) Immature Gran % 0.2 % % (0.0-1.1) Immature Gran # 0.01 10^3/uL 10^3/uL (0.00-0.10) PT 13.0 SEC SEC (12.0-15.0) INR 0.96 (0.83-1.16) APTT 28.4 SEC SEC (23.0-38.0) Sodium Potassium Chloride Carbon Dioxide Anion Gap BUN Creatinine Estimated GFR Glucose Calcium Magnesium Total Bilirubin Conjugated Bilirubin Unconjugated Bilirubin AST ALT Alkaline Phosphatase Creatine Kinase CK-MB (CK-2) Fraction Troponin I Total Protein Albumin Medications Given: Enoxaparin Sodium (Lovenox) 110 mg SC BID CHERI Stop: 09/09/18 20:59 Last Admin: 03/13/18 20:39 Dose: 110 mg Sotalol HCl (Betapace) 120 mg PO BID CHERI Stop: 09/09/18 20:59 Last Admin: 03/13/18 20:37 Dose: 120 mg Discontinued Medications Aspirin (Aspirin) 324 mg PO EDNOW ONE Stop: 03/13/18 14:14 Last Admin: 03/13/18 14:48 Dose: 243 mg Diltiazem HCl (Cardizem 25 Mg/5 Ml Vial) 20 mg IVP EDNOW ONE Stop: 03/13/18 14:14 Last Admin: 03/13/18 15:09 Dose: 10 mg Sodium Chloride (Ns) 500 mls @ 1,000 mls/hr IV EDNOW ONE PRN Reason: Protocol Stop: 03/13/18 14:42 Last Admin: 03/13/18 14:47 Dose: 500 mls Diltiazem HCl 125 mg/ Dextrose 125 mls @ 0 mls/hr IV EDNOW ONE; As Directed PRN Reason: Protocol Stop: 03/13/18 15:45 Last Admin: 03/13/18 16:07 Dose: 125 mls General Time Seen by Provider: 03/13/18 13:58 Initial Vital Signs: Initial Vital Signs Temperature (C) 36.2 C 03/13/18 13:46 Heart Rate 140 H 03/13/18 13:46 Respiratory Rate 20 03/13/18 13:46 Blood Pressure 113/74 03/13/18 13:46 O2 Sat (%) 97 03/13/18 13:46 O2 Delivery Mode Room Air Allergies/Adverse Reactions: Tetanus Vaccines and Toxoid Allergy (Verified 03/13/18 13:43) Flu like symptoms, fever Home Medications: Medication Instructions Recorded Tamsulosin HCl [Flomax 0.4 MG (*)] 0.4 mg PO DAILY 02/15/15 Vitamin B Complex [B Complex] 1 each PO DAILY 02/19/17 Ascorbic Acid [Vitamin C 500 mg 1,000 mg PO DAILY 12/18/17 (*)] Sotalol HCl [Sotalol] 120 mg PO BID #60 tablet 12/20/17 Departure - Departure Disposition: [facility] Acute Clinical Impression: Palpitations Atrial flutter Qualifiers: Atrial flutter type: unspecified Qualified Code(s): I48.92 - Unspecified atrial flutter Atrial fibrillation Qualifiers: Atrial fibrillation type: paroxysmal Qualified Code(s): I48.0 - Paroxysmal atrial fibrillation Condition: Fair Report Scribed for: Carmen Luke Report Scribed by: Georgette Belle Date of Report: 03/13/18 Time of Report: 14:04
[2018-03-13] MEDS ORDERED: NS 500 ML IV ONE (14:13)
[2018-03-13] MEDS ORDERED: ASPIRIN 81 MG CHEWABLE TAB PO ONE (14:13)
[2018-03-13] MEDS ORDERED: DILTIAZEM 25 MG/5 ML VIAL IVP ONE (14:13)
[2018-03-13 14:25] LABS: PLATELET COUNT 248 10^3/uL (150-400)
[2018-03-13 14:33] LABS: INR 0.96 (0.83-1.16)
[2018-03-13 14:34] LABS: CREATINE KINASE 43 IU/L (0-224)
[2018-03-13] MEDS ORDERED: DILTIAZEM 125 MG in D5W 125 ML IV ONE (15:44)
[2018-03-13] MEDS ORDERED: ACETAMINOPHEN 325 MG TAB PO PRN (16:09)
[2018-03-13] MEDS ORDERED: ONDANSETRON DISINTEGRATING 4 MG TAB PO PRN (16:09)
[2018-03-13] MEDS ORDERED: ONDANSETRON 4 MG/2 ML VIAL IVP PRN (16:09)
--- NOTE | 2018-03-13 17:14 | ASMTCMCOM ---
CM Note CM Note Notes: Pt presented to the Emergency Department with a rapid heart rate and dizziness; found to have unspecified aflutter. Pt to be admitted for further evaluation and treatment. History includes afib and a traumatic brain injury. Pt is and lives with his in [place]. He is retired. Discharge needs remain unclear at this time. Anticipate pt will likely d/c home independently with family support when medically stable. CM will continue to follow. Current Discharge Plan: To be determined Date Signed: 03/13/2018 05:14 PM Electronically Signed By:Annalee Lantigua RN
--- NOTE | 2018-03-13 17:28 | PDGENHP ---
History and Physical - Chief Complaint palpitations - History of Present Illness The patient is a 67 y/o male with a history of A-fib and a TBI, complaining of a rapid heart rate and dizziness onset 2.5 days ago. While he was sleeping 2.5 days ago he went into A-fib which woke him up. He normally converts in a short amount of time, but he was unable to naturally convert this time. His heart rate did feel irregular and pounding yesterday, but this has not occurred today. He has also felt more indigestion and heart burn as well as mild exertional shortness of breath since the a-fib started. Yesterday, while standing up he became extremely dizzy and felt like he might faint. He has baseline dizziness due to a TBI, but it has been worse since the a-fib started. As he has been unable to convert back to a normal rhythm, he decided to present to the emergency department today. Takes baby aspirin and Sotalol daily for a- fib. Denies cardiac stents, CAD, CHF, asthma, emphysema, stroke, numbness in arms or legs, swelling in legs. In the E.D. he was started on a Dilt Drip. Cards was consulted. No fever, chills, chest pain, shortness of breath, vomiting, diarrhea, urinary complaints, headache, lightheadedness. PAST MEDICAL HISTORY: Atrial fibrillation, TBI PAST SURGICAL HISTORY: Ablation SOCIAL HISTORY: Lives in [place], , retired, denies alcohol or tobacco use FmHx: NC Lab/data: CBC Ok INR: 0.96 CMP: Ok Trop: Ok History Information - Allergies/Home Medication List Allergies/Adverse Reactions: Tetanus Vaccines and Toxoid Allergy (Verified 03/13/18 13:43) Flu like symptoms, fever Home Medications: Tamsulosin HCl [Flomax 0.4 MG (*)] 0.4 mg PO DAILY 02/15/15 [Last Taken 03/12/18 ] Vitamin B Complex [B Complex] 1 each PO DAILY 02/19/17 [Last Taken 03/13/18] Ascorbic Acid [Vitamin C 500 mg (*)] 1,000 mg PO DAILY 12/18/17 [Last Taken ] I have personally reviewed and updated: medical history, social history - Past Medical History Additional medical history: Afib/Aflutter s/p 3 cardioversions and 1 ablation, currently on metoprolol and sotalol for rate control. h/o TBI with resulting subdural hematoma. hypertension. aplastic anemia - Surgical History Additional surgical history: craniotomy. afib ablation. tonsillectomy. small bowel obstruction - Family History Positive for: diabetes type II - Social History Smoking Status: Never smoked Additional social history: Patient lives with his , continues to work. Review of Systems Review of Systems: ROS: 10pt was reviewed & negative except for what was stated in HPI & below Physical Exam Physical Exam: Temp Pulse Resp BP Pulse Ox 36.9 C 124 H 20 120/80 95 03/13/18 16:39 03/13/18 16:39 03/13/18 16:39 03/13/18 16:39 03/13/18 16:39 Constitutional: no apparent distress Eyes: PERRL, EOMI Ears, Nose, Mouth, Throat: moist mucous membranes, hearing normal Cardiovascular: irregularly irregular, No regular rate and rhythym, No edema Respiratory: no respiratory distress, no rales or rhonchi Gastrointestinal: normoactive bowel sounds, soft, non-tender abdomen Genitourinary: no bladder fullness Skin: warm Musculoskeletal: full muscle strength Neurologic: AAOx3 Psychiatric: interacting appropriately, not anxious, not encephalopathic Lymph, Heme, Immunologic: No petechiae Lab Data & Imaging Review 03/13/18 14:12 03/13/18 14:12 WBC 6.62 10^3/uL (3.80-9.50) 03/13/18 14:12 RBC 4.99 10^6/uL (4.40-6.38) 03/13/18 14:12 Hgb 16.2 g/dL (13.7-17.5) 03/13/18 14:12 Hct 46.7 % (40.0-51.0) 03/13/18 14:12 MCV 93.6 fL (81.5-99.8) 03/13/18 14:12 MCH 32.5 pg (27.9-34.1) 03/13/18 14:12 MCHC 34.7 g/dL (32.4-36.7) 03/13/18 14:12 RDW 12.1 % (11.5-15.2) 03/13/18 14:12 Plt Count 248 10^3/uL (150-400) 03/13/18 14:12 MPV 9.3 fL (8.7-11.7) 03/13/18 14:12 Neut % (Auto) 50.8 % (39.3-74.2) 03/13/18 14:12 Lymph % (Auto) 34.1 % (15.0-45.0) 03/13/18 14:12 [place] % (Auto) 9.8 % (4.5-13.0) 03/13/18 14:12 Eos % (Auto) 4.5 % (0.6-7.6) 03/13/18 14:12 Baso % (Auto) 0.6 % (0.3-1.7) 03/13/18 14:12 Nucleat RBC Rel Count 0.0 % (0.0-0.2) 03/13/18 14:12 Absolute Neuts (auto) 3.36 10^3/uL (1.70-6.50) 03/13/18 14:12 Absolute Lymphs (auto) 2.26 10^3/uL (1.00-3.00) 03/13/18 14:12 Absolute Monos (auto) 0.65 10^3/uL (0.30-0.80) 03/13/18 14:12 Absolute Eos (auto) 0.30 10^3/uL (0.03-0.40) 03/13/18 14:12 Absolute Basos (auto) 0.04 10^3/uL (0.02-0.10) 03/13/18 14:12 Absolute Nucleated RBC 0.00 10^3/uL (0-0.01) 03/13/18 14:12 Immature Gran % 0.2 % (0.0-1.1) 03/13/18 14:12 Immature Gran # 0.01 10^3/uL (0.00-0.10) 03/13/18 14:12 PT 13.0 SEC (12.0-15.0) 03/13/18 14:12 INR 0.96 (0.83-1.16) 03/13/18 14:12 APTT 28.4 SEC (23.0-38.0) 03/13/18 14:12 Sodium 141 mEq/L (135-145) 03/13/18 14:12 Potassium 5.0 mEq/L (3.5-5.2) 03/13/18 14:12 Chloride 106 mEq/L (97-110) 03/13/18 14:12 Carbon Dioxide 21 mEq/l (22-31) L 03/13/18 14:12 Anion Gap 14 mEq/L (8-16) 03/13/18 14:12 BUN 17 mg/dL (7-23) 03/13/18 14:12 Creatinine 0.9 mg/dL (0.7-1.3) 03/13/18 14:12 Estimated GFR > 60 03/13/18 14:12 Glucose 96 mg/dL (70-100) 03/13/18 14:12 Calcium 9.8 mg/dL (8.5-10.4) 03/13/18 14:12 Magnesium 1.8 mg/dL (1.6-2.3) 03/13/18 14:12 Total Bilirubin 1.1 mg/dL (0.1-1.4) 03/13/18 14:12 Conjugated Bilirubin 0.5 mg/dL (0.0-0.5) 03/13/18 14:12 Unconjugated Bilirubin 0.6 mg/dL (0.0-1.1) 03/13/18 14:12 AST 27 IU/L (17-59) 03/13/18 14:12 ALT 53 IU/L (21-72) 03/13/18 14:12 Alkaline Phosphatase 55 IU/L (38-126) 03/13/18 14:12 Creatine Kinase 43 IU/L (0-224) 03/13/18 14:12 CK-MB (CK-2) Fraction 0.35 ng/mL (0.00-3.19) 03/13/18 14:12 Troponin I < 0.012 ng/mL (0.000-0.034) 03/13/18 14:12 Total Protein 7.5 g/dL (6.3-8.2) 03/13/18 14:12 Albumin 4.5 g/dL (3.5-5.0) 03/13/18 14:12 Assessment & Plan Assessment: #Aflutter, Afib -mgt per cards -cont cardizem drip as needed -cont Sotalol -He will have a CT brain today if negative, Lovenox to start -If still in afib will have HERNAN with cardioversion in a.m. #questionable chest pain -TTE -Trops #Near Syncope -Mgmt per above -Holding Tamsulosin as he says he cannot take with Sotalol #BPH #prolonged QT -repeat EKG in a.m. -check Mg -Hold meds which prolong the QT Plan: Per above d/w Cardiology
[2018-03-13] MEDS ORDERED: DILTIAZEM 125 MG in D5W 125 ML IV SCH (17:30)
[2018-03-13] MEDS: SOTALOL HCL 80 MG TAB PO SCH (20:37)
[2018-03-13] MEDS: ENOXAPARIN 120 MG/0.8 ML SYR SC SCH (20:39)
--- NOTE | 2018-03-13 21:38 | GCON ---
[f rep st] CONSULTATION CARDIOLOGY CONSULTATION INDICATION FOR CARDIOLOGY CONSULTATION,: Atrial flutter with RVR, syncopal event. REQUESTING PHYSICIAN: Roger Jaimes MD of Hospitalist Services HISTORY OF PRESENT ILLNESS: The patient is a 67-year-old male who is known to our practice. He has significant past history that includes paroxysmal atrial fibrillation and flutter, non flow-limiting carotid artery disease, traumatic brain injury (history of subdural hematoma in 2013 due to mechanical fall down stairs). Patient reporting approximately 2-1/2 days ago, the patient felt himself go into what he initially felt was atrial flutter with extremely fast heart rate. He has been noted in the past to have this, and has naturally converted on his own. He did note some mild shortness of breath and lightheadedness. He continued taking his sotalol, feeling that this would work. He does inform me yesterday of an episode of, while standing, becoming extremely lightheaded, and did feel that he did pass out for a brief second or 2 , falling back into his chair, denying that he hit his head. This occurred with his palpitations. He does also report associated symptoms of mild indigestion and heartburn that have occurred with his palpitations, but no chest pressure or pain. After dealing with this for a significant amount of time, and feeling that he would not self convert, he called [facility], and was told to come to the emergency department for further evaluation. Besides ongoing fatigue symptoms and lightheadedness, he reports no orthopnea, PND, edema, or symptoms suggestive of TIA or CVA. He reports that he has been in his normal state of health, actually feeling fairly well since his last hospital admission for sotalol in November of this year. Upon arrival to the emergency department, electrocardiogram was done, showing atrial flutter with right bundle branch block, left posterior fascicular block (known to have right bundle branch block and left fascicular block), with ventricular rate at 138 beats per minute. He was given a bolus dose of IV diltiazem, which initially slowed his heart rate down, but temporarily, and returned back up to an RVR of 130 beats per minute. Laboratory studies drawn on admission showing no anemia, INR 0.91, normal electrolytes and renal function, normal liver function, negative troponin and CPK. PAST MEDICAL HISTORY: Patient with significant past medical history that includes: 1. Paroxysmal atrial fibrillation. 2. Paroxysmal atrial flutter. 3. Palpitations. 4. Traumatic brain injury (subdural hematoma in 2013). 5. Non flow-limiting carotid artery disease. 6. BPH. PAST SURGICAL HISTORY: Includes atrial fibrillation ablation in 2005 and 2006 at the [facility], craniotomy for subdural hematoma, small bowel obstruction. FAMILY HISTORY: The patient with significant family history for diabetes, hypercholesteremia, and coronary artery disease. SOCIAL HISTORY: He is . He does not use tobacco. He is a light alcohol user. He denies any illicit drug use. He is retired. ALLERGIES: Tetanus vaccine and toxoid. HOME MEDICATIONS: Include Flomax 0.4 mg p.o.daily, vitamin B complex one pill daily, sotalol 120 mg p.o. b.i.d., vitamin C 1000 mg p.o. daily, aspirin 81 mg p.o. daily. REVIEW OF SYSTEMS: A 10-point review of systems on this patient, all negative except as mentioned above. PHYSICAL EXAMINATION: GENERAL APPEARANCE: Medium built, mildly obese, male. He is alert and oriented to person, place, time, situation. Appears to be under no acute distress. VITAL SIGNS: Currently, blood pressure of 105/76, heart rate 121, atrial flutter on the monitor, respirations 20, saturating 95% on room air. Temperature 36.9 degrees Celsius. HEENT: Head is normocephalic. Lips and tongue are pink and moist with no signs of cyanosis. NECK: Trachea is midline, +2 carotid pulses bilateral. No auscultated bruits, no jugular vein distention. ABDOMEN: Soft, nontender, bowel sounds x4 quadrants, no organomegaly, no palpable masses. SKIN: [place], warm, dry, no cyanosis, no clubbing, no peripheral edema. VASCULAR: +2 radial pulses bilateral, +2 carotids bilateral, +1 dorsal pedal and posterior tibial pulses bilateral. LUNGS: Clear to auscultation, no rhonchi, rales or wheezes. No accessory muscle use, no intercostal muscle retraction noted. HEART: Tachycardic, regular rate, rhythm noted, S1, S2, 1/6 systolic murmur noted along the left sternal border, no S3. ABDOMEN: Soft, nontender, bowel sounds x4 quadrants, no organomegaly, no palpable masses. SKIN: [place], warm, dry, no cyanosis, no clubbing, no peripheral edema. LABORATORY STUDIES: Laboratory studies drawn today show WBC of 6.62, hemoglobin of 16.2, hematocrit of 46.7, platelet count 248. INR 0.96. Sodium 141, potassium 5.0, chloride 106, CO2 21, BUN 17, creatinine 0.9, glucose 96, calcium 9.8, magnesium 1.8, total bilirubin 1.1, AST 27, ALT 53, alkaline phosphate 55, CK 43, CK-MB fraction 0.35, troponin less than 0.012. Total protein 7.5, albumin 4.5. STUDIES: Electrocardiogram as mentioned above. From our office notes, the patient's most recent echocardiogram was done on February 27, 2017, showing EF of 65% to 70% with mild concentric LVH, trace TR. The patient's most recent MPI study was July 10, 2016, which showed no reversible deficits suggesting of ischemia. Normal LV systolic function with no wall motion abnormalities, EF was estimated at 60%. Patient has had a carotid ultrasound done February 19, 2017, showing mild arthrosclerotic disease bilateral, correlate in both arteries with less than 50% stenosis. ASSESSMENT AND PLAN: 1. Atrial flutter and atrial fibrillation with rapid ventricular response. Patient reports that he initially went into atrial flutter, and has been going between atrial flutter and atrial fibrillation; patient has been able to determine these palpitations in the past. His current ventricular rate is running in the 120s. He did have mild improvement with Cardizem bolus in the emergency room, he has been started on Cardizem drip and has been started to titrate up for better rate management. I have discussed this with his primary automobile repair service estimator, Dr. De Anda, reviewing his electrocardiogram today. He appears to be fairly euvolemic, with no significant signs of heart failure. Plan is to continue him on the diltiazem drip. Due to his reported minimal syncopal event and known history of subdural hematoma in the past, would like him to have a repeated head CT scan this evening. In November of this year, he did see Neurosurgery, who did have him undergo a head CT scan at that time and had cleared him for anticoagulation use. If his CT scan is unchanged, then we will plan to start him on anticoagulation of Lovenox tonight, and if he remains in atrial flutter/fibrillation, will plan for transesophageal echocardiogram cardioversion in the morning. Note, the patient does have a CHADS-VASc score of 2, and has been recommended to be on full anticoagulation. In the past; he had been on warfarin and does not like the way Coumadin has made him feel. He has also been on Pradaxa in the past, with which he has reported abdominal upset. He had been on Eliquis, but this was expensive, and not his insurance company's primary choice, and their recommendation has been for him to be on Xarelto, but Dr. De Anda does not want him on this due to its potential high risk of cranial bleeds and past history of subdural hematoma. Our office is currently working on trying to get him cleared to use Eliquis by his insurance company. The patient is willing to go back on Eliquis and pay out of pocket until we can potentially get approval from his insurance company. We will plan on doing this after his cardioversion tomorrow. Have restarted him on his sotalol dosing per the request of Electrophysiology Services, and he will have a TSH level drawn in the a.m. 2. Syncope/near-syncope: Reported brief syncopal event yesterday morning when standing up, occurring at the same time as rapid pulse, more than likely was due to his atrial fibrillation with rapid ventricular response, with orthostasis changes. We will evaluate left ventricle by transesophageal echocardiogram tomorrow. If he does convert, we will plan on him having a transthoracic echocardiogram. Will evaluate his orthostatics after conversion. 3. Questionable chest pain: Patient reporting ongoing indigestion pain since converting into atrial fibrillation, he has had negative troponins. His most recent MPI study was June 2016. Will cycle his troponin levels. If they deem negative and he has no further symptoms, consideration of outpatient MPI study. 4. History of prolonged QTc. He has been evaluated by Electrophysiology in the past for this, he has been resumed on sotalol training. We will monitor his electrocardiogram post cardioversion. He is to avoid medications that may prolong QTc. The plan has been discussed with Dr. Shepherd, Dr. De Anda of Electrophysiology services, and Dr. Jaimes of Hospitalist services. Thank you for this consultation. We will be glad to follow along with you. /[id number]/MODL MTDD
[2018-03-14 04:17] LABS: PLATELET COUNT 197 10^3/uL (150-400)
--- NOTE | 2018-03-14 04:46 | CPEKG ---
Heart Rate: 75 RR Interval: 800 QRSD Interval: 168 QT Interval: 452 QTC Interval: 505 QRS [place]: 93 T Wave [place]: -22 EKG Severity - ABNORMAL ECG - EKG Impression: ATRIAL FIBRILLATION--NEW SINCE MARCH 13, 2018 EKG Impression: RBBB AND LPFB Electronically Signed By: Gonsalo Moore 14-Mar-2018 06:49:34
[2018-03-14] MEDS ORDERED: NS 1,000 ML IV ONE (06:00)
[2018-03-14] MEDS ORDERED: ATROPINE SULFATE 1 MG/10 ML SYR IVP ONE (06:00)
[2018-03-14] MEDS: ENOXAPARIN 120 MG/0.8 ML SYR SC SCH (08:58)
[2018-03-14] MEDS ORDERED: VITAMIN B COMPLEX 1 EA CAP/TAB PO SCH (09:00)
[2018-03-14] MEDS ORDERED: TAMSULOSIN HCL 0.4 MG CAP PO SCH (09:00)
[2018-03-14] MEDS: SOTALOL HCL 80 MG TAB PO SCH (09:00)
[2018-03-14] MEDS ORDERED: ASCORBIC ACID 500 MG TAB PO SCH (09:00)
--- NOTE | 2018-03-14 09:18 | CPEKG ---
Heart Rate: 121 RR Interval: 496 QRSD Interval: 160 QT Interval: 392 QTC Interval: 557 QRS [place]: 94 T Wave [place]: -17 EKG Severity - ABNORMAL ECG - EKG Impression: RBBB AND LPFB EKG Impression: Atrial fibrillation EKG Impression: No significant change from March 14, 2018, 4:29 Electronically Signed By: Gonsalo Moore 14-Mar-2018 10:44:45
[2018-03-14] MEDS ORDERED: LIDOCAINE 2% 100 MG/5 ML SYR ONE (10:57)
[2018-03-14] MEDS ORDERED: PROPOFOL 200 MG/20 ML VIAL ONE (10:57)
--- NOTE | 2018-03-14 10:57 | PDANEPAE ---
ANE History of Present Illness Patient presents for HERNAN/Cardioversion ANE Past Medical History - Cardiovascular History Hx Arrhythmias: Yes - Pulmonary History Hx Oxygen in Use at Home: No Hx Sleep Apnea: No - Endocrine History Hx Diabetes: No - Chronic Pain History Chronic Pain: No ANE Review of Systems Review of Systems: ANE Patient History - Allergies Allergies/Adverse Reactions: Tetanus Vaccines and Toxoid Allergy (Verified 03/13/18 13:43) Flu like symptoms, fever - Home Medications Home medications: home medication list seen and reviewed Home Medications: Tamsulosin HCl [Flomax 0.4 MG (*)] 0.4 mg PO DAILY 02/15/15 [Last Taken 03/12/18 ] Vitamin B Complex [B Complex] 1 each PO DAILY 02/19/17 [Last Taken 03/13/18] Ascorbic Acid [Vitamin C 500 mg (*)] 1,000 mg PO DAILY 12/18/17 [Last Taken ] - NPO status NPO Status: no food or drink >8 hours - Anes Hx Anes Hx: no prior problems - Smoking Hx Smoking Status: Never smoked ANE Labs/Vital Signs - Labs Result Diagrams: 03/14/18 03:36 03/14/18 03:36 - Vital Signs Blood Pressure: 87/65 Heart Rate: 110 Respiratory Rate: 20 O2 Sat (%): 91 Height: 187.96 cm Weight: 108.6 kg ANE Physical Exam - Airway Neck exam: decreased ROM Mallampati Score: Class 2 Mouth exam: normal dental/mouth exam - Pulmonary Pulmonary: no respiratory distress - Cardiovascular Cardiovascular: irregularly irregular - ASA Status ASA Status: III ANE Anesthesia Plan Anesthesia Plan: GA with mask (rba discussed)
--- NOTE | 2018-03-14 11:24 | POSTANESTH ---
Post Anesthetic Evaluation Cardiovascular Status: Similar to Pre-Op Cond Respiratory Status: Similar to Pre-op Cond. Level of Consciousness/Mental Status: Alert and Oriented Pain Control: Adequate, Prn Tx Ordered Nausea/Vomiting Control: Adequate, Prn Tx Ordered Complications Possibly Related to Anesthesia: None Noted
--- NOTE | 2018-03-14 11:34 | CPEKG ---
Heart Rate: 57 RR Interval: 1053 P-R Interval: 156 QRSD Interval: 168 QT Interval: 504 QTC Interval: 491 P [place]: -18 QRS [place]: 96 T Wave [place]: -9 EKG Severity - ABNORMAL ECG - EKG Impression: SINUS RHYTHM EKG Impression: RBBB AND LPFB EKG Impression: Resolution of atrial fibrillation since March 14, 2018, 9:17 Electronically Signed By: Gonsalo Moore 14-Mar-2018 17:13:46
--- NOTE | 2018-03-14 11:40 | CPIP ---
[f rep st] INVASIVE CARDIAC PROCEDURE INDICATION: Atrial fibrillation. PROCEDURE: Cardioversion with transesophageal echocardiogram. DESCRIPTION OF THE PROCEDURE: I discussed with the patient his options for the treatment and managem ent of atrial fibrillation and he prefers rhythm control, and at this point in time wanted to proceed with a transesophageal echocardiogram and cardioversion. He has had this done before and he is well aware of the risks of both procedures. He signed consents and we proceeded without complications. He converted to normal sinus rhythm with 1 shock of 360 watt seconds. He has had no complications and is waking up as I am dictating. He is in sinus rhythm. All his questions have been answered. He is moving all extremities and doing extremely well. He will follow up with his cook frozen dessert. He is going to be discharged on Eliqu, and that is being taken care of by Robert Billingsley. /[id number]/MODL
[2018-03-14 12:40] VITALS: BP 93/62
[2018-03-14] MEDS ORDERED: MAGNESIUM SULF 2 GM/WATER 50 ML IV ONE (12:43)
[2018-03-14] MEDS ORDERED: CEPACOL LOZENGE PO PRN (14:14)
[2018-03-14] MEDS ORDERED: APIXABAN 5 MG TAB PO SCH (21:00)
--- NOTE | 2018-03-14 23:21 | PDDCSUM ---
Discharge Summary Discharge Summary: Date of presentation: 03/13/18 Date of discharge: 03/14/18 Follow-up items: Outpatient stress test and EP evaluation Discharge diagnoses: 1. Atrial fibrillation and flutter w/ rapid ventricular response Consultations: Cardiology Procedures: HERNAN/DCCV, Echo Chief Complaint: Chest discomfort Subjective: Asymptomatic, no chest symptoms Physical Exam: HR 80-90, SBP 108, sat > 90% on RA, heart rhythm regular, lungs CTA bilat Labs: Trop x 3, TSH 3, Cr 0.8, K 4.2, Mg 1.7, Hgb 14.5 Hospital Course: Mr. Torres presented with symptomatic atrial fibrillation and flutter w/ rapid ventricular response, and he was placed on dilt gtt, received antiocoagulation, and underwent HERNAN/DCCV successfully. Dr. De Anda recommended discharge on home dose of sotalol + eliquis, and patient will follow-up with him early next week to consider ablation and outpatient stress test. After DCCV , patient's rhythm was RBBB/LPFB, and this is consistent with his [place] rhythm. Medications: Please see official discharge medication reconcilliation sheet in chart, of note, eliquis added. Instructions: Please follow-up next week as scheduled.
== END 2018-03-14 17:05 | disposition home or self-care (01) ==
LOC: F2W 16:23
PROVIDERS: ADMIT Family Medicine; ATTEND Internal Medicine
PROC: B245ZZ4 Ultrasonography of Left Heart, Transesophageal (ICD-10-PCS; principal; 2018-03-14)
PROC: 5A2204Z Restoration of Cardiac Rhythm, Single (ICD-10-PCS; principal; 2018-03-14)
DX: I48.91 Unspecified atrial fibrillation (principal); I48.92 Unspecified atrial flutter; R55 Syncope and collapse; E86.9 Volume depletion, unspecified; I45.81 Long QT syndrome; I44.5 Left posterior fascicular block; I45.10 Unspecified right bundle-branch block; R42 Dizziness and giddiness; N40.0 Benign prostatic hyperplasia without lower urinary tract symptoms; I77.9 Disorder of arteries and arterioles, unspecified; W19.XXXS Unspecified fall, sequela; Z79.82 Long term (current) use of aspirin; Z87.820 Personal history of traumatic brain injury; Z82.49 Family history of ischemic heart disease and other diseases of the circulatory system; Z23 Encounter for immunization
CPT/HCPCS: 70450; 92960; 93005; 93312; G0378; J1650; J2001; J2704; J3475; 96374

== ENCOUNTER 2018-04-24 07:10 | Observation (INO) | payer OTHER, MEDICARE ==
[2018-04-24] MEDS ORDERED: NS 1,000 ML IV ONE (07:12)
--- NOTE | 2018-04-24 07:38 | CPEKG ---
Heart Rate: 53 RR Interval: 1132 P-R Interval: 148 QRSD Interval: 168 QT Interval: 492 QTC Interval: 462 P [place]: -32 QRS [place]: 91 T Wave [place]: 31 EKG Severity - ABNORMAL ECG - EKG Impression: SINUS RHYTHM EKG Impression: ATRIAL PREMATURE COMPLEX EKG Impression: RBBB AND LPFB Electronically Signed By: Didier De Anda 24-Apr-2018 08:44:03
[2018-04-24] MEDS ORDERED: BUPIVACAINE 0.5% 30 ML SDV ONE (07:53)
[2018-04-24] MEDS ORDERED: ISOPROTERENOL HCL/D5W 0.2 MG/50 ML BAG IV ONE (07:53)
[2018-04-24] MEDS ORDERED: HEPARIN 10,000 UNIT/10 ML MDV (1,000 UNIT/ML) ONE (07:53)
[2018-04-24] MEDS ORDERED: LIDOCAINE 1% 300 MG/30 ML SDV ONE (07:53)
[2018-04-24 08:00] LABS: PLATELET COUNT 211 10^3/uL (150-400)
--- NOTE | 2018-04-24 08:00 | PDGENHP ---
History & Physical Chief Complaint: fatigue and soa History of Present Illness: aflutter and af Pertinent Past, Social, Family History: reviewed and no changes Relevant Physical Exam: cta no rales rhonchii rub s1s2 regular no s3 Cardiorespiratory Assessment: cta no rales rhonchi rub. s1s2 irregular
[2018-04-24 08:09] LABS: INR 0.88 (0.83-1.16); PROTIME(PATIENT) 12.2 SEC (12.0-15.0)
--- NOTE | 2018-04-24 08:25 | PDANEPAE ---
ANE History of Present Illness Patient presents for a-flutter ablation ANE Past Medical History - Cardiovascular History Hx Arrhythmias: Yes - Pulmonary History Hx Oxygen in Use at Home: No Hx Sleep Apnea: No - Endocrine History Hx Diabetes: No - Chronic Pain History Chronic Pain: No ANE Review of Systems Review of Systems: ANE Patient History - Allergies Allergies/Adverse Reactions: Tetanus Vaccines and Toxoid Allergy (Verified 03/13/18 13:43) Flu like symptoms, fever - Home Medications Home medications: home medication list seen and reviewed Home Medications: Tamsulosin HCl [Flomax 0.4 MG (*)] 0.4 mg PO DAILY 02/15/15 [Last Taken 04/23/18 ] Vitamin B Complex [B Complex] 1 each PO DAILY 02/19/17 [Last Taken 04/23/18] Ascorbic Acid [Vitamin C 500 mg (*)] 1,000 mg PO DAILY 12/18/17 [Last Taken ] - NPO status NPO Status: no food or drink >8 hours - Anes Hx Anes Hx: no prior problems, post operative nausea Hx Anesthesia Complications (with details): Constipation after previous ablations x 2 - Smoking Hx Smoking Status: Never smoked ANE Labs/Vital Signs - Labs Result Diagrams: 04/24/18 07:50 04/24/18 07:50 - Vital Signs Height: 185.42 cm Weight: 106.141 kg ANE Physical Exam - Airway Neck exam: decreased ROM, short neck Mallampati Score: Class 3 - Pulmonary Pulmonary: no respiratory distress - Cardiovascular Cardiovascular: regular rate and rhythym - ASA Status ASA Status: II ANE Anesthesia Plan Anesthesia Plan: GA with mask (rba discussed)
[2018-04-24] MEDS ORDERED: PROPOFOL/EMULSION 500 MG/50 ML BOTTLE IV ONE ×2 (08:35→09:05)
[2018-04-24] MEDS ORDERED: LIDOCAINE 2% 5 ML SDV ONE (08:35)
[2018-04-24] MEDS ORDERED: ROCURONIUM 100 MG/10 ML VIAL ONE (09:41)
[2018-04-24] MEDS ORDERED: ONDANSETRON 4 MG/2 ML VIAL ONE (10:00)
[2018-04-24] MEDS ORDERED: DEXAMETHASONE 4 MG/ML VIAL ONE (10:00)
[2018-04-24] MEDS ORDERED: ACETAMINOPHEN 325 MG TAB PO PRN (12:20)
--- NOTE | 2018-04-24 12:55 | EPPROC ---
Electrophysiology Procedure Note: INDICATION: Recurrent atrial flutter and At PROCEDURES PERFORMED: 25428-59 EP evaluation with RA/RV/LA pace/record, with arrhythmia induction 87640-97 EP evaluation with RA/RV pace record, insert/reposition catheter, with arrhythmia induction 04144 SVT ablation 92307 3D mapping Fluoroscopy Catheters & Anesthesia: The patient arrived in the Electrophysiology Laboratory in the fasting state. The right clavicular region, right groin, and left groin area were prepped and draped in the usual sterile manner. Anesthesiologist administered general anesthesia. Appropriate non-invasive blood pressure, pulse oximetry and end- tidal CO2 monitoring was established. All catheters were placed percutaneously using the modified Seldinger technique , and advanced into position under fluoroscopic guidance. Two decapolar catheters were placed, one in the CS and another in the ALRA position. The pt had a very large RA and hence placement of the catheters was difficult. Programmed stimulation was performed from the right atrium, coronary sinus ( left atrium) and right ventricle. At at 138bpm was easily induced. It appeared to be AT based on A-V pattern. VAAV could not be accomplished since the tachycardia would terminate easily. Initially using the RAMP sheath, a high-resolution 3D (3 dimensional) Carto electroanatomical map of the sub-Eustachian isthmus and right atrium was obtained during pacing of the posterolateral coronary sinus. For ablation of typical atrial flutter, #8 Latvian deflectable quadrapolar electrode catheter (2mm-5mm-2mm spacing) with 3.5 mm irrigated tip electrode and location sensor for the PlateJoy mapping system was inserted in the long sheath and advanced to the right atrium. Radiofrequency applications were applied between the tricuspid annulus at 0630 oclock as seen in the ENGLISH view and the inferior vena cava. Mapping of the AT was performed, only 187ms of tachycardia CL was found in the RA. The earliest breakout was near CS os but there was not a focal point but diffuse area. CS5 was early but there were eaqually early area in the septum region near it. Ablation was performed but the AT continued to be induced and it was easily terminated by LA pacing and not RA pacing. Hence it was deemed to be LA tachycardia. Post ablation, a high-resolution electroanatomical map of the sub-Eustachian isthmus was obtained during pacing of the posterolateral coronary sinus. This confirmed conduction block across the sub-Eustachian isthmus. Bidirectional block was also confirmed by pacing. The catheters were removed. Sheaths were removed in the EP lab after applying subcutaneous purse string suture. The patient was transferred to the cardiovascular holding area in stable condition. There were no apparent complications. Results: Atrial flutter LA tachycardia CONCLUSIONS: * Cavotricuspid isthmus dependent counterclockwise atrial flutter. * Successful catheter mediated ablation of cavotricuspid isthmus achieving bi- directional conduction block across cavotricuspid isthmus. * LA tachycardia, ablation of which was not attempted. * No apparent complications. Patient Problems: Problems Problem Status Onset Atrial fibrillation Acute Atrial flutter Acute Palpitations Acute Syncope Acute
[2018-04-24] MEDS ORDERED: ENOXAPARIN 80 MG/0.8 ML SYR SC SCH (21:00)
[2018-04-24] MEDS ORDERED: NON-FORMULARY NEW DRUG (Sotalol Hcl [Sotalol] 120 MG) PO SCH (21:00)
[2018-04-24] MEDS: SOTALOL HCL 80 MG TAB PO SCH (21:04)
[2018-04-24] MEDS: APIXABAN 5 MG TAB PO SCH (21:06)
[2018-04-25 07:31] VITALS: BP 126/70
[2018-04-25] MEDS ORDERED: VITAMIN B COMPLEX 1 EA CAP/TAB PO SCH (09:00)
[2018-04-25] MEDS ORDERED: ASCORBIC ACID 500 MG TAB PO SCH (09:00)
[2018-04-25] MEDS ORDERED: TAMSULOSIN HCL 0.4 MG CAP PO SCH (09:00)
[2018-04-25] MEDS: SOTALOL HCL 80 MG TAB PO SCH (09:03)
[2018-04-25] MEDS: APIXABAN 5 MG TAB PO SCH (09:05)
[2018-04-25] MEDS: ASPIRIN 325 MG TAB PO SCH ×2 (09:05→09:41)
--- NOTE | 2018-04-25 09:09 | CPEKG ---
Heart Rate: 55 RR Interval: 1091 P-R Interval: 148 QRSD Interval: 174 QT Interval: 484 QTC Interval: 463 P [place]: -23 QRS [place]: 91 T Wave [place]: 20 EKG Severity - ABNORMAL ECG - EKG Impression: SINUS RHYTHM EKG Impression: ATRIAL PREMATURE COMPLEX EKG Impression: RBBB AND LPFB Electronically Signed By: Didier De Anda 25-Apr-2018 12:55:14
--- NOTE | 2018-04-25 09:48 | ECHO ---
[email or web address] [address] [address] Main: [phone] Fax: Transthoracic Echocardiogram Name: BLADIMIR MARVIN MR#: [id number] Study Date: 04/25/2018 Study Time: 08:36 AM Date of : 1950 Age: 67 year(s) Height: 185.4 cm (73 in.) Weight: 106.14 kg (234 lb.) BSA: 2.3 m2 Gender: Male Examination: Echo Indication: Post EP Image Quality: Technically Difficult Contrast: Requested by: Didier De Anda BP: 126 mmHg/70 mmHg Heart Rate: Rhythm: Indication: Post EP Procedure Staff Mold Sheet Cleaner: Gregoria Younger [facility] Reading Physician: Radha Rocha MD Requesting Provider: Conclusions: Normal size left ventricle. Mild concentric LV hypertrophy. Normal global systolic LV function. EF is 65 %. No regional wall motion abnormality. Normal size right ventricle. Normal RV function. Mild to moderate mitral regurgitation. Mild tricuspid regurgitation is present. The pulmonary artery pressure is normal. Right ventricular systolic pressure measures 32mmHg. The abdominal aorta appears enlarged in the subcostal view. Patient will have dedicated retroperitoneal ultrasound for further evaluation. No pericardial effusion. Measurements: Chambers Valvular Assessment AV/MV Valvular Assessment TV/PV Normal Normal Normal Name Value Range Name Value Range Name Value Range Ao Alyssia (2D): 3.3 cm (1.4 cm-2.6 AV Vmax: 1.06 m/s (1 m/s-1.7 TR Vmax: 2.61 mm/s ( - ) cm) m/s) TR PGmax: 27 mmHg ( - ) IVSd (2D): 1.2 cm (0.6 cm-1.1 AV meanP mmHg ( - ) syst. PAP: 32 mmHg ( - ) cm) HERLINDA (VTI): 3.2 cm ( - ) PV Vmax: 0.88 m/s (0.6 m/s-0.9 LVDd (2D): 5.2 cm (4.2 cm-5.9 MV E Vmax: 0.80 m/s ( - ) m/s) cm) MV A Vmax: 0.42 m/s ( - ) PV PGmax: 3 mmHg ( - ) LVDs (2D): 3.0 cm (2.1 cm-4 MV E/A: 1.90 ( - ) cm) MV PHT: 0.076 s ( - ) LVPWd (2D): 1.2 cm (0.6 cm-1 cm) MVA (PHT): 2.9 s ( - ) LVOTd 2.3 cm 2.3 cm mm Patient: BLADIMIR MARVIN Study Date: 04/25/2018 Page 1 of 2 08:36 AM LVEF (BP): 65 % (>=55 %) RVDd(2D): 2.8 cm (1.9 cm-3.8 cmmm) Continued Measurements: Chambers Valvular Assessment AV/MV Valvular Assessment TV/PV Name Value Name Value Name Value LADs: 3.8 cm MV DecTime: 236 m/s CVP (est.): 5 mmHg LADs Lon.0 cm MV E' Septal: 0.08 m/s LA Area: 22.0 cm2 MV E/E' Septal: 9.60 LA Volume: 60 ml MV E/E' Lateral: 9.50 LA Volume Index: 26.1 ml/m2 RA Area: 20.3 cm2 Additional Vessels Name Value Ao Ascendin.1 cm Inferior Vena Cava: 2.0 cm Findings: Left Ventricle: Normal size left ventricle. Mild concentric LV hypertrophy. Normal global systolic LV function. EF is 65 %. No regional wall motion abnormality. Normal diastolic LV function. Right Ventricle: Normal size right ventricle. Normal RV function. Left Atrium: The left atrium is normal in size. Right Atrium: The right atrium is normal in size. Mitral Valve: The mitral valve is normal in appearance and function. Mild to moderate mitral regurgitation. No mitral stenosis is present. Aortic Valve: The aortic valve is tri-leaflet. There is no significant aortic valve regurgitation. No aortic valve stenosis is present. Tricuspid Valve: The tricuspid valve is normal in appearance and function. Mild tricuspid regurgitation is present. The pulmonary artery pressure is normal. Right ventricular systolic pressure measures 32mmHg. Pulmonic Valve: The pulmonic valve is normal in appearance and function. There is no pulmonic regurgitation seen. Aorta: The abdominal aorta appears enlarged in the subcostal view. Patient will have dedicated retroperitoneal ultrasound for further evaluation. The aorta is normal. Normal size aortic root measuring 3.3 cm. Normal size ascending aorta measuring 3.1 cm. IVC: The IVC is normal sized. Pericardium: No pericardial effusion. Exam Comments: (No Signature Object) Patient: BLADIMIR MARVIN Study Date: 04/25/2018 Page 2 of 2 08:36 AM [id number]
--- NOTE | 2018-04-25 12:01 | GDS ---
[f rep st] DISCHARGE SUMMARY ADMISSION DIAGNOSES: 1. Paroxysmal atrial flutter. 2. Paroxysmal atrial fibrillation. 3. Right bundle branch block. 4. History of non-flow limiting carotid artery disease. 5. History of traumatic brain injury. DISCHARGE DIAGNOSES: 1. Atrial flutter. 2. Status post atrial flutter ablation. 3. Paroxysmal atrial fibrillation. 4. Left atrial tachycardia. 5. Non-flow limiting carotid artery disease. 6. History of traumatic brain injury. PROCEDURES PERFORMED DURING HOSPITALIZATION: 1. Electrocardiogram. 2. Electrophysiology study. 3. Successful catheter-mediated ablation of cavotricuspid isthmus, achieving bidirectional conductio n and block across cavotricuspid isthmus. 4. Noted left atrial tachycardia, in which ablation was not attempted from electrophysiology study. 5. Echocardiogram. 6. Abdominal ultrasound. BRIEF HISTORY: Please see H and P. The patient is a 67-year-old male with significant history of at rial fibrillation and atrial flutter with remote history of ablation in 1999, 2005, and 2006. He has been well controlled on sotalol therapy, but has been having episodes of breakthrough atrial flutter , despite being on antiarrhythmic therapy. He was seen by Dr. De Anda, who felt he was an appropriate c andidate to undergo electrophysiology study and potentially atrial flutter ablation. HOSPITAL COURSE: Patient admitted through the CVC, prepped for procedure, and taken to the electroph ysiology lab. There, he underwent EP procedure, which noted cavotricuspid isthmus dependent counterc lockwise atrial flutter. This was successfully catheter mediated ablation, achieving bidirectional c onduction block. It was also noted that he had a left atrial tachycardia, in which location ablation was not attempted. No complications from procedure. Patient was taken to the CVC and ultimately to the PCU for overnight observation. There, he has remained in sinus rhythm, with no significant arrh ythmias or pauses noted. He denies any chest pain, shortness of breath, or symptoms suggesting of is chemia. He has been up and walking in the unit without difficulties. It was noted off his morning e chocardiogram that potentially having a potential enlarged abdominal aorta, in which he did undergo a bdominal aorta ultrasound, which showed no significant enlargement. PHYSICAL EXAMINATION: Done today. GENERAL APPEARANCE: A medium built, mildly obese male. He is alert and oriented to person, place, time, and situation. Appears to be under no acute distr ess. VITAL SIGNS: Current vital signs are blood pressure of 126/70, heart rate of 50 beats per rubén te, sinus paul on the monitor, respirations 16, saturating 94% on room air, temperature 36.8 degree Celsius. HEENT: Head is normocephalic. Lips and tongue are pink and moist, with no signs of cyanos is. Conjunctivae pink. NECK: Trachea is midline, +2 carotid pulses bilateral. No jugular vein dis tention. RESPIRATORY: Lungs are clear to auscultation. No rhonchi, rales or wheezes. No accessory muscle use, no intercostal muscle retraction noted. CARDIAC: Regular rate, regular rhythm, S1, S2, no S3, S4, gallops, rubs or murmurs noted. ABDOMEN: Soft, nontender, bowel sounds x4 quadrants. N o organomegaly. No palpable masses. SKIN: W[place], warm, dry, no cyanosis, no clubbing, no peripheral edema. VASCULAR: +2 radial pulses bilateral, +2 posterior tibial pulses bilateral, dorsal pedal pu lses bilateral. SKIN: [place], warm, dry, no cyanosis, no clubbing, no peripheral edema. Right groin site, catheter insertion site with no redness, swelling, drainage, ecchymosis, or hematoma. No auscu ltated bruit over site. LABORATORY STUDIES: Laboratory studies drawn today show WBC of 10.32, hemoglobin of 15.2, hematocrit 44.8, platelet count of 219. Sodium of 141, potassium 4.2, chloride 106, CO2 24, BUN 13, creatinine 0.7, glucose 93, calcium 9.5, magnesium 2.0, troponin at 0.245 noted, expected to have elevated trop onin level status post ablation. PROCEDURES: Electrophysiology and ablation procedure as mentioned above, a.m. echocardiogram showing mild concentric LVH with normal LV systolic function, EF of 65% with no wall motion abnormalities. RV was normal size and function, [id number] MR, mild TR, RVSP of 32 mmHg. Questioning potentia l abdominal aortic enlargement. Abdominal ultrasound today showing normal caliber abdominal aorta an d common iliac arteries. The a.m. electrocardiogram showing sinus rhythm, with right bundle branch b lock and left posterior fascicular block. Premature atrial contraction. DISPOSITION: Patient will be discharged home under activity restrictions of not lifting more than 10 pounds in the next week and no strenuous activity for the next 2 weeks. DISCHARGE MEDICATIONS: Please see discharge med reconciliation sheet. Note, patient has been restar danny on home dose of sotalol and Eliquis. DISCHARGE INSTRUCTIONS: Post atrial flutter ablation discharge instructions went over with the jamiee nt, including monitoring for signs of infection, bleeding precautions, activity restrictions, and med ication compliance. The patient verbalizes understanding and has no questions or concerns at this ti me. He has a followup appointment set with Dr. De Anda on May 14. At the time of discharge, both jamie ent and verbalized understanding of all instructions. They have been told that if any problems or concerns come up post discharge, they are to notify our office or return to the hospital. Total time spent on discharge greater than 30 minutes. /[id number]/MODL
--- NOTE | 2018-04-25 14:07 | ASMTLACE ---
LACE Length of stay for Answers: 1 day current admission Comorbidities - select Answers: Other Notes: Atrial fibrillation; TB I all that apply # of Emergency department Answers: 1-2 visits in the last 6 months Score: 3 Date Signed: 04/25/2018 02:07 PM Electronically Signed By:Alysha Vasquez RN
--- NOTE | 2018-04-25 14:09 | ASMTCMCOM ---
CM Note CM Note Notes: Patient chart reviewed. Medically cleared for dc to home. No needs identified. CM available should needs arise. Plan: Home independent Date Signed: 04/25/2018 02:09 PM Electronically Signed By:Alysha Vasquez RN
== END 2018-04-25 11:55 | disposition home or self-care (01) ==
LOC: FCATH 07:10 → F2W 11:02
PROVIDERS: ADMIT Internal Medicine Cardiovascular Disease; ATTEND Internal Medicine Cardiovascular Disease
PROC: 02K83ZZ Map Conduction Mechanism, Percutaneous Approach (ICD-10-PCS; principal; 2018-04-24)
PROC: 4A023FZ Measurement of Cardiac Rhythm, Percutaneous Approach (ICD-10-PCS; principal; 2018-04-24)
PROC: 02583ZZ Destruction of Conduction Mechanism, Percutaneous Approach (ICD-10-PCS; principal; 2018-04-24)
DX: I48.92 Unspecified atrial flutter (principal); I48.0 Paroxysmal atrial fibrillation; I47.1 Supraventricular tachycardia; I25.10 Atherosclerotic heart disease of native coronary artery without angina pectoris; Z87.820 Personal history of traumatic brain injury
CPT/HCPCS: 76770; 93005; 93306; 93613; 93621; 93653; C1730; C1732; C1893; J1100; J1644; J2405; J2704

== ENCOUNTER → 2018-05-14 | Outpatient (CLI) | payer OTHER, MEDICARE | LOC: BHLMT 10:15 | PROVIDERS: ATTEND Internal Medicine Cardiovascular Disease | DX: I48.91 Unspecified atrial fibrillation (principal); I48.92 Unspecified atrial flutter | CPT/HCPCS: 93005-PO ==

== ENCOUNTER 2018-10-29 11:27 | Inpatient (IN) | payer OTHER, MEDICARE ==
--- NOTE | 2018-10-29 11:44 | EDPHY ---
H & P Stated Complaint: chest pain palpitations since this am and fever/ flu symtoms Time Seen by Provider: 10/29/18 11:39 HPI/ROS: CHIEF COMPLAINT: Chest pain, dyspnea, palpitations, flu-like symptoms HISTORY OF PRESENT ILLNESS: The patient presents the ED with anterior chest pain, dyspnea, palpitations and flu-like symptoms increasing over the past 2-3 days. The patient feels quite ill and generally weak. The patient denies any recent travel outside the [place]. The patient does have a history of arrhythmia. He is not currently anticoagulated. The patient is status post ablation. REVIEW OF SYSTEMS: A comprehensive 10 point review of systems is otherwise negative aside from elements mentioned in the history of present illness. Source: Patient, Family - Medical/Surgical History Hx Asthma: No Hx Chronic Respiratory Disease: No Hx Diabetes: No Hx Cardiac Disease: Yes Hx Renal Disease: No Hx Cirrhosis: No Hx Alcoholism: No Hx HIV/AIDS: No Hx Splenectomy or Spleen Trauma: No Other PMH: subdural hematoma. cardiac ablation/afib. Cardioversions. htn - Social History Smoking Status: Never smoked - Physical Exam Exam: General Appearance: Elderly male, ill-appearing Eyes: Pupils equal and round no pallor or injection ENT, Mouth: Mucous membranes moist Respiratory: Rhonchorous breath sounds bilateral lung bases Cardiovascular: Tachycardic Gastrointestinal: Abdomen is soft and nontender, no masses, bowel sounds normal Neurological: 5/5 strength all 4 extremities Skin: Flush, warm and dry Musculoskeletal: Neck is supple nontender Extremities: symmetrical, full range of motion Psychiatric: Patient is oriented X 3, there is no agitation Constitutional: Initial Vital Signs Temperature (C) 38.8 C H 10/29/18 11:33 Heart Rate 167 H 10/29/18 11:33 Respiratory Rate 18 10/29/18 11:33 Blood Pressure 92/77 L 10/29/18 11:33 O2 Sat (%) 90 L 10/29/18 11:33 O2 Delivery Mode Room Air Allergies/Adverse Reactions: Tetanus Vaccines and Toxoid Allergy (Verified 03/13/18 13:43) Flu like symptoms, fever Home Medications: Medication Instructions Recorded Metoprolol Succinate 10/29/18 SOTALOL 10/29/18 Medical Decision Making - Diagnostics EKG Interpretation: EKG: Complete interpretation has been separately recorded in the [employer] archive. Summary impression: Atrial flutter, rate 161 Imaging Results: Imaging Impressions Chest X-Ray 10/29/18 12:05 Impression: 1. Hazy opacity in the right mid lung is new and probably represents an area of pneumonia. 2. Cardiomegaly with central vascular congestion, similar to prior. ED Course/Re-evaluation: The patient presents to the ED with fever, tachycardia, dyspnea increasing over the past days in the setting of an upper respiratory infection. The patient presents to the ED with recurrent atrial flutter. Clinically he is dehydrated. The patient does have a pneumonia noted on his chest x-ray. Blood cultures x2 are obtained. Patient does have SIRS with tachycardia, tachypnea and fever + infection ( PNEUMONIA) qualifies for sepsis. No clinical evidence of severe sepsis or septic shock. Initial lactate reassuring. Given the fact the patient is on Tikosyn he will be started on ceftriaxone and doxycycline at the recommendation of Infectious Disease. He will be admitted to the PCU for additional fluid rehydration. Consultation is made with the hospitalist service. Consultation is made with Cardiology service. Differential Diagnosis: Differential diagnosis considered includes sepsis, severe sepsis, septic shock, atrial fibrillation, atrial flutter Critical Care Time: Critical care time exclusive of procedures and exclusive of the PA's time was 35 minutes, performed by myself, Rob Rae MD. Patient presents to the ED with a rapid heart rate of 160 is noted to be in recurrent atrial flutter in the setting of sepsis and pneumonia. Patient is started on broad-spectrum antibiotics. He had aggressive IV fluid rehydration. He will be admitted to a monitor bed this evening. - Data Points Laboratory Results: Laboratory Results 10/29/18 11:52 10/29/18 11:52 10/29/18 10/29/18 10/29/18 12:03 11:57 11:52 WBC RBC Hgb POC Hgb 16.0 gm/dL gm/dL (13.7-17.5) Hct POC Hct 47 % % (40-51) MCV MCH MCHC RDW Plt Count MPV Neut % (Auto) Lymph % (Auto) [place] % (Auto) Eos % (Auto) Baso % (Auto) Nucleat RBC Rel Count Absolute Neuts (auto) Absolute Lymphs (auto) Absolute Monos (auto) Absolute Eos (auto) Absolute Basos (auto) Absolute Nucleated RBC Immature Gran % Immature Gran # RBC/WBC/PLT Morphology Platelet Estimate VBG Lactic Acid POC Sodium 139 mEq/L mEq/L (135-145) Sodium 136 mEq/L mEq/L (135-145) POC Potassium 4.1 mEq/L mEq/L (3.3-5.0) Potassium 4.5 mEq/L mEq/L (3.5-5.2) POC Chloride 105 mEq/L mEq/L (97-110) Chloride 107 mEq/L mEq/L (97-110) Carbon Dioxide 22 mEq/l mEq/l (22-31) Anion Gap 7 mEq/L mEq/L (6-14) POC BUN 12 mg/dL mg/dL (7-23) BUN 12 mg/dL mg/dL (7-23) Creatinine 0.8 mg/dL mg/dL (0.7-1.3) POC Creatinine 0.8 mg/dL mg/dL (0.7-1.3) Estimated GFR > 60 Glucose 115 mg/dL H mg/dL (70-100) POC Glucose 119 mg/dL H mg/dL (70-100) Calcium 9.4 mg/dL mg/dL (8.5-10.4) POC Troponin I 0.00 ng/mL ng/mL (0.00-0.08) 10/29/18 10/29/18 11:52 11:52 WBC 10.25 10^3/uL H 10^3/uL (3.80-9.50) RBC 4.55 10^6/uL 10^6/uL (4.40-6.38) Hgb 15.2 g/dL g/dL (13.7-17.5) POC Hgb Hct 44.3 % % (40.0-51.0) POC Hct MCV 97.4 fL fL (81.5-99.8) MCH 33.4 pg pg (27.9-34.1) MCHC 34.3 g/dL g/dL (32.4-36.7) RDW 11.9 % % (11.5-15.2) Plt Count 217 10^3/uL 10^3/uL (150-400) MPV 9.0 fL fL (8.7-11.7) Neut % (Auto) 87.0 % H % (39.3-74.2) Lymph % (Auto) 5.6 % L % (15.0-45.0) [place] % (Auto) 5.7 % % (4.5-13.0) Eos % (Auto) 0.9 % % (0.6-7.6) Baso % (Auto) 0.5 % % (0.3-1.7) Nucleat RBC Rel Count 0.0 % % (0.0-0.2) Absolute Neuts (auto) 8.92 10^3/uL H 10^3/uL (1.70-6.50) Absolute Lymphs (auto) 0.57 10^3/uL L 10^3/uL (1.00-3.00) Absolute Monos (auto) 0.58 10^3/uL 10^3/uL (0.30-0.80) Absolute Eos (auto) 0.09 10^3/uL 10^3/uL (0.03-0.40) Absolute Basos (auto) 0.05 10^3/uL 10^3/uL (0.02-0.10) Absolute Nucleated RBC 0.00 10^3/uL 10^3/uL (0-0.01) Immature Gran % 0.3 % % (0.0-1.1) Immature Gran # 0.03 10^3/uL 10^3/uL (0.00-0.10) RBC/WBC/PLT Morphology TNP Platelet Estimate TNP VBG Lactic Acid 1.6 mmol/L mmol/L (0.7-2.1) POC Sodium Sodium POC Potassium Potassium POC Chloride Chloride Carbon Dioxide Anion Gap POC BUN BUN Creatinine POC Creatinine Estimated GFR Glucose POC Glucose Calcium POC Troponin I Medications Given: Discontinued Medications Acetaminophen (Tylenol) 1,000 mg PO EDNOW ONE Stop: 10/29/18 13:24 Last Admin: 10/29/18 13:25 Dose: 1,000 mg Sodium Chloride (Ns) 1,000 mls @ 0 mls/hr IV ONCE ONE; Wide Open PRN Reason: Protocol Stop: 10/29/18 12:06 Last Admin: 10/29/18 12:19 Dose: 1,000 mls Point of Care Test Results: Chemistry 10/29/18 10/29/18 12:03 11:57 POC Sodium 139 mEq/L mEq/L (135-145) POC Potassium 4.1 mEq/L mEq/L (3.3-5.0) POC Chloride 105 mEq/L mEq/L (97-110) POC BUN 12 mg/dL mg/dL (7-23) POC Creatinine 0.8 mg/dL mg/dL (0.7-1.3) POC Glucose 119 mg/dL H mg/dL (70-100) POC Troponin I 0.00 ng/mL ng/mL (0.00-0.08) ISTAT H&H 10/29/18 12:03 POC Hgb 16.0 gm/dL gm/dL (13.7-17.5) POC Hct 47 % % (40-51) Departure - Departure Disposition: [facility] Inpatient Acute Clinical Impression: Sepsis, Atrial flutter, Community acquired pneumonia Condition: Fair Referrals: [facility]AG[facility] [Primary Care Provider] - As per Instructions
[2018-10-29 12:04] LABS: PLATELET COUNT 217 10^3/uL (150-400)
[2018-10-29] MEDS ORDERED: NS 1,000 ML IV ONE (12:05)
--- NOTE | 2018-10-29 12:20 | CPEKG ---
Test Reason : OPEN Blood Pressure : / mmHG Vent. Rate : 161 BPM Atrial Rate : 161 BPM P-R Int : 000 ms QRS Dur : 158 ms QT Int : 318 ms P-R-T Axes : 000 144 -44 degrees QTc Int : 521 ms mplex, no further rhythm analysis attemptedExtreme tachycardia with wide complex, no further rhythm analysis attempted Confirmed by Rob Rae ([id number]) on 10/29/2018 12:20:20 PM Referred By: Confirmed By:Rob Rae
[2018-10-29] MEDS ORDERED: ACETAMINOPHEN 500 MG TAB PO ONE (13:23)
[2018-10-29] MEDS ORDERED: DOXYCYCLINE HYCLATE 100 MG CAP/TAB PO ONE (13:25)
[2018-10-29] MEDS ORDERED: METOPROLOL TARTRATE 5 MG/5 ML INJ IVP ONE (15:10)
[2018-10-29] MEDS ORDERED: SODIUM CL NASAL 45 ML BTL NS PRN (15:25)
[2018-10-29] MEDS ORDERED: FUROSEMIDE 20 MG/2 ML VIAL IVP ONE (15:25)
[2018-10-29] MEDS ORDERED: ONDANSETRON DISINTEGRATING 4 MG TAB PO PRN (15:26)
[2018-10-29] MEDS ORDERED: ONDANSETRON 4 MG/2 ML VIAL IVP PRN (15:26)
[2018-10-29] MEDS ORDERED: ACETAMINOPHEN 325 MG TAB PO PRN (15:26)
--- NOTE | 2018-10-29 15:35 | PDGENHP ---
History and Physical - Chief Complaint SOB - History of Present Illness 68 yo male with hx of Afib, s/p Ablation, p/w SOB, malaise, palpitations, cough , and fever. CXR in ER shows pulm vascular congestion and possible RML pneumonia. He met SIRS criteria and was given 1 L of NS in the ER. He has remained on RA. He was admitted to the PCU and I have been called urgently as his HR is in the 170's. His BP is normotensive. He reports he feels better than in the ER. He had a negative resp PCR. He does not have Leukocytosis. He was started on Rocephin and Doxycycline. He is not anticoagulated He denies leg swelling. He currently denies CP although he did have some downstairs Trop negative EKG does not show ischemia Tele: A-Flutter PMH: subdural hematoma. cardiac ablation/afib. Cardioversions. htn, BPH - Social History Smoking Status: Never smoked, Drinks socially FMHx: non contributory History Information - Allergies/Home Medication List Allergies/Adverse Reactions: Tetanus Vaccines and Toxoid Allergy (Verified 03/13/18 13:43) Flu like symptoms, fever Home Medications: Ibuprofen/Pseudoephedrine HCl [Advil Cold & Sinus Caplet] 1 each PO DAILY PRN [Last Taken 10/28/18] Metoprolol Tartrate [Lopressor 25 mg (*)] 25 mg PO BID 10/29/18 [Last Taken 03/12] Sodium Cl Nasal [[place] (*)] 1 spray NS DAILY PRN 10/29/18 [Last Taken 03/12] Sotalol HCl [Sotalol] 120 mg PO BID 10/29/18 [Last Taken 10/28/18] Tamsulosin HCl [Flomax 0.4 MG (*)] 0.4 mg PO DAILY 10/29/18 [Last Taken 10/28/18 ] I have personally reviewed and updated: medical history, social history - Past Medical History Additional medical history: Afib/Aflutter s/p 3 cardioversions and 1 ablation, currently on metoprolol and sotalol for rate control. h/o TBI with resulting subdural hematoma. hypertension. aplastic anemia - Surgical History Additional surgical history: craniotomy. afib ablation. tonsillectomy. small bowel obstruction - Family History Positive for: diabetes type II - Social History Smoking Status: Never smoked Additional social history: Patient lives with his , continues to work. Review of Systems Review of Systems: ROS: 10pt was reviewed & negative except for what was stated in HPI & below Physical Exam Physical Exam: Temp Pulse Resp BP Pulse Ox 37.6 C 168 H 19 115/73 92 10/29/18 14:19 10/29/18 14:54 10/29/18 14:19 10/29/18 14:54 10/29/18 14:19 Constitutional: no apparent distress Eyes: PERRL, EOMI Ears, Nose, Mouth, Throat: moist mucous membranes Cardiovascular: tachycardia, edema (trace LE Edema), No JVD Respiratory: no respiratory distress, reduced air movement Gastrointestinal: normoactive bowel sounds, soft, non-tender abdomen Skin: warm Neurologic: AAOx3 Psychiatric: interacting appropriately, not anxious, not encephalopathic Lymph, Heme, Immunologic: No petechiae Lab Data & Imaging Review 10/29/18 11:52 10/29/18 11:52 WBC 10.25 10^3/uL (3.80-9.50) H 10/29/18 11:52 RBC 4.55 10^6/uL (4.40-6.38) 10/29/18 11:52 Hgb 15.2 g/dL (13.7-17.5) 10/29/18 11:52 POC Hgb 16.0 gm/dL (13.7-17.5) 10/29/18 12:03 Hct 44.3 % (40.0-51.0) 10/29/18 11:52 POC Hct 47 % (40-51) 10/29/18 12:03 MCV 97.4 fL (81.5-99.8) 10/29/18 11:52 MCH 33.4 pg (27.9-34.1) 10/29/18 11:52 MCHC 34.3 g/dL (32.4-36.7) 10/29/18 11:52 RDW 11.9 % (11.5-15.2) 10/29/18 11:52 Plt Count 217 10^3/uL (150-400) 10/29/18 11:52 MPV 9.0 fL (8.7-11.7) 10/29/18 11:52 Neut % (Auto) 87.0 % (39.3-74.2) H 10/29/18 11:52 Lymph % (Auto) 5.6 % (15.0-45.0) L 10/29/18 11:52 [place] % (Auto) 5.7 % (4.5-13.0) 10/29/18 11:52 Eos % (Auto) 0.9 % (0.6-7.6) 10/29/18 11:52 Baso % (Auto) 0.5 % (0.3-1.7) 10/29/18 11:52 Nucleat RBC Rel Count 0.0 % (0.0-0.2) 10/29/18 11:52 Absolute Neuts (auto) 8.92 10^3/uL (1.70-6.50) H 10/29/18 11:52 Absolute Lymphs (auto) 0.57 10^3/uL (1.00-3.00) L 10/29/18 11:52 Absolute Monos (auto) 0.58 10^3/uL (0.30-0.80) 10/29/18 11:52 Absolute Eos (auto) 0.09 10^3/uL (0.03-0.40) 10/29/18 11:52 Absolute Basos (auto) 0.05 10^3/uL (0.02-0.10) 10/29/18 11:52 Absolute Nucleated RBC 0.00 10^3/uL (0-0.01) 10/29/18 11:52 Immature Gran % 0.3 % (0.0-1.1) 10/29/18 11:52 Immature Gran # 0.03 10^3/uL (0.00-0.10) 10/29/18 11:52 RBC/WBC/PLT Morphology TNP 10/29/18 11:52 Platelet Estimate TNP 10/29/18 11:52 VBG Lactic Acid 1.6 mmol/L (0.7-2.1) 10/29/18 11:52 POC Sodium 139 mEq/L (135-145) 10/29/18 12:03 Sodium 136 mEq/L (135-145) 10/29/18 11:52 POC Potassium 4.1 mEq/L (3.3-5.0) 10/29/18 12:03 Potassium 4.5 mEq/L (3.5-5.2) 10/29/18 11:52 POC Chloride 105 mEq/L (97-110) 10/29/18 12:03 Chloride 107 mEq/L (97-110) 10/29/18 11:52 Carbon Dioxide 22 mEq/l (22-31) 10/29/18 11:52 Anion Gap 7 mEq/L (6-14) 10/29/18 11:52 POC BUN 12 mg/dL (7-23) 10/29/18 12:03 BUN 12 mg/dL (7-23) 10/29/18 11:52 Creatinine 0.8 mg/dL (0.7-1.3) 10/29/18 11:52 POC Creatinine 0.8 mg/dL (0.7-1.3) 10/29/18 12:03 Estimated GFR > 60 10/29/18 11:52 Glucose 115 mg/dL (70-100) H 10/29/18 11:52 POC Glucose 119 mg/dL (70-100) H 10/29/18 12:03 Calcium 9.4 mg/dL (8.5-10.4) 10/29/18 11:52 POC Troponin I 0.00 ng/mL (0.00-0.08) 10/29/18 11:57 Assessment & Plan Assessment: #Aflutter/Tachycardia in pt with hx of Afib s/p Ablation -Give Metoprolol 5mg IV x 1 now -He is on Metoprolol and Sotalol for unclear reasons -Cards is seeing him now. We will wait for ongoing reccs -Need for AC per Cards #CHF, pulm vascular congestion -Give Lasix x 1 now -Can repeat if remains normotensive -recent Echo with preserved EF #possible RML pneumonia -CXR reviewed -Resp Panel negative -will repeat tomorrow -no Leukocytosis noted -obtain Procalcitonin -Cont Rocephin. Holding off on Doxycyline which was given in the ER in conjunction #SIRS criteria: based on tachycardia and tachypnea that are more likely attributable to cardiac etiology #BPH: cont home meds Plan: per above await blood cultures await cards reccs appropriate home meds total critical care time with pt with significant tachycardia is 50 minutes
[2018-10-29] MEDS: METOPROLOL TARTRATE 25 MG TAB PO SCH (19:20)
[2018-10-29] MEDS: SOTALOL HCL 80 MG TAB PO SCH (19:30)
[2018-10-29] MEDS: HYDROCODONE/APAP 5/325 TAB PO PRN (22:24)
[2018-10-30 04:48] LABS: PLATELET COUNT 192 10^3/uL (150-400)
--- NOTE | 2018-10-30 05:18 | GCON ---
CARDIAC CONSULTATION DATE OF CONSULTATION: 10/29/2018 CHIEF COMPLAINT: Tachycardia. 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 He has a long history of arrhythmias. He was seen by Dr. De Anda in the past and had an ablation for flutter on April 24, 2018. He has done well since that time, only having intermittent episodes of approximately 10 seconds of palpitations. Approximately 2 days ago, he developed congestion with a productive cough and fever. He noted some chest pressure as well. He also noted he was tachycardic and when presenting to the hospital, appeared to be in an AV kristie reentrant tachycardia at a rate of 160-180 beats per minute. His chest x-ray also suggested a right middle lobe pneumonia. He was started on antibiotics and given 1 L of fluids. He notes that he does feel better than when sitting in the ER. PAST MEDICAL HISTORY: He has a history of atrial fibrillation and flutter since 1999. He has had a possible VT ablation at 2005 and 2006. His most recent ablation was for atrial flutter on April 24, 2018, with Dr. Didier De Anda. He also has a history of intracranial bleed post fall down 12 cement stairs. PAST SURGICAL HISTORY: None. FAMILY HISTORY: His father required a pacemaker. SOCIAL HISTORY: He denies any tobacco use. He is currently accompanied by his . MEDICATIONS: Flomax daily, sotalol 120 mg b.i.d., metoprolol 25 mg b.i.d. ALLERGIES: Tetanus booster. REVIEW OF SYSTEMS: 10-point review of systems is negative except for what is stated in the H and P. PHYSICAL EXAMINATION: GENERAL: Patient appears in no acute distress. EYES: Conjunctivae within normal limits. VITALS: Blood pressure 98/71, heart rate 155, oxygen saturation 92% on room air, afebrile. LUNGS: Clear to auscultation. No wheezes, rhonchi, or crackles auscultated. CARDIAC: Tachycardic without any significant murmurs, rubs, or gallops appreciated. ABDOMEN: Soft, nontender, nondistended. EXTREMITIES: Palpable pulses bilaterally without any evidence of edema. NEUROLOGICAL: Nonfocal. PSYCHIATRIC: Mood and affect appropriate. SKIN: No obvious rashes or ecchymosis identified. LABORATORY: WBCs 10.25. BMP within normal limits. Troponin negative x1. DIAGNOSTIC STUDIES: Chest x-ray suggests right middle lobe pneumonia. His EKG suggests AV kristie reentrant tachycardia at a rate of 160 beats per minute. ASSESSMENT: The patient is a 68-year-old male with a history of atrial fibrillation and atrial flutter, who presents with pneumonia and supraventricular tachycardia. PLAN: The patient developed a productive cough and fever 2 days ago. His chest x-ray does suggest pneumonia. He is also in a supraventricular tachycardia which is most consistent with AV kristie reentrant tachycardia, atrial flutter, or atrial tachycardia. Carotid massage by Dr. Marte was performed, and the patient did convert to a junctional rhythm and then to normal sinus rhythm. We will plan to continue to monitor him on telemetry. If he has recurrent tachycardia, consider vagal maneuvers versus adenosine. Ultimately, he should be considered for EP study and possible ablation. He had a prior echo 6 months ago which showed preserved LV function without any significant valvular abnormalities. I do not think it is necessary to repeat an echo at this time. /[id number]/MODL MTDD
[2018-10-30] MEDS: METOPROLOL TARTRATE 25 MG TAB PO SCH ×2 (06:37→19:47)
[2018-10-30] MEDS: SOTALOL HCL 80 MG TAB PO SCH ×2 (06:37→19:48)
[2018-10-30] MEDS: TAMSULOSIN HCL 0.4 MG CAP PO SCH (08:52)
[2018-10-30] MEDS: HYDROCODONE/APAP 5/325 TAB PO PRN (09:00)
--- NOTE | 2018-10-30 09:55 | CPEKG ---
Test Reason : OPEN Blood Pressure : / mmHG Vent. Rate : 074 BPM Atrial Rate : 074 BPM P-R Int : 134 ms QRS Dur : 172 ms QT Int : 429 ms P-R-T Axes : -24 098 023 degrees QTc Int : 476 ms Sinus rhythm RBBB and LPFB In comparison to prior ECG, heart rates have slowed (similar BBB patterns were noted) Confirmed by Ellis Delcid ([id number]) on 10/30/2018 9:54:57 AM Referred By: Confirmed By:Ellis Delcid
--- NOTE | 2018-10-30 10:04 | PDMN ---
Medical Necessity Medical necessity: Pt meets IP criteria as of 10/29/2018 per and MCG M-505 ( Atrial Fibrillation); est los > 2 mn for ongoing tx and management of atrial fibrillation/flutter with rapid rate (170's) in the setting of CHF with tachypnea and possible pneumonia; requiring cardiology consult, IVP beta blockers, IV ABX, and serial labs.
[2018-10-30] MEDS ORDERED: ADENOSINE 6 MG/2 ML VIAL IVP ONE (10:36)
[2018-10-30] MEDS ORDERED: ATROPINE SULFATE 1 MG/10 ML SYR IVP ONE (11:07)
--- NOTE | 2018-10-30 12:03 | PDANEPAE ---
ANE History of Present Illness here for HERNAN/CV ANE Past Medical History - Cardiovascular History Hx Hypertension: Yes Hx Arrhythmias: Yes Hx Coronary Artery / Peripheral Vascular Disease: No Hx CHF / Valvular Disease: No Hx Palpitations: No - Pulmonary History Hx COPD: No Hx Asthma/Reactive Airway Disease: No Hx Recent Upper Respiratory Infection: No Hx Oxygen in Use at Home: No Hx Sleep Apnea: No - Endocrine History Hx Diabetes: No Hypothyroid: No - Chronic Pain History Chronic Pain: No ANE Review of Systems Review of systems is: negative Review of Systems: - Exercise capacity Exercise capacity: >=4 METS ANE Patient History - Allergies Allergies/Adverse Reactions: Tetanus Vaccines and Toxoid Allergy (Verified 03/13/18 13:43) Flu like symptoms, fever - Home Medications Home medications: home medication list seen and reviewed Home Medications: Ibuprofen/Pseudoephedrine HCl [Advil Cold & Sinus Caplet] 1 each PO DAILY PRN [Last Taken 10/28/18] Metoprolol Tartrate [Lopressor 25 mg (*)] 25 mg PO BID 10/29/18 [Last Taken 03/12] Sodium Cl Nasal [[place] (*)] 1 spray NS DAILY PRN 10/29/18 [Last Taken 03/12] Sotalol HCl [Sotalol] 120 mg PO BID 10/29/18 [Last Taken 10/28/18] Tamsulosin HCl [Flomax 0.4 MG (*)] 0.4 mg PO DAILY 10/29/18 [Last Taken 10/28/18 ] - Smoking Hx Smoking Status: Never smoked ANE Labs/Vital Signs - Labs Result Diagrams: 10/30/18 04:15 10/30/18 04:15 - Vital Signs Vital Signs: reviewed preoperatively; see RN documention for details Blood Pressure: 88/68 Heart Rate: 140 Respiratory Rate: 18 O2 Sat (%): 90 Height: 187.96 cm Weight: 113.6 kg ANE Physical Exam - Airway Neck exam: FROM Mallampati Score: Class 1 Mouth exam: normal dental/mouth exam - Pulmonary Pulmonary: no respiratory distress - Cardiovascular Cardiovascular: regular rate and rhythym - ASA Status ASA Status: II ANE Anesthesia Plan Anesthesia Plan: GA with mask
[2018-10-30] MEDS ORDERED: PROPOFOL/EMULSION 500 MG/50 ML BOTTLE IV ONE (12:10)
--- NOTE | 2018-10-30 12:23 | ASMTCMCOM ---
CM Note CM Note Notes: 10/30/2018 Case Management Note Pt admitted for sepsis, pneumonia and atrial flutter. Pt had cardioversion today. There are no identified case management d/c needs d/t pt marital status, age, and independence with ADL's prior to admission. There are no therapy evals ordered at this time. Case Management d/c poc: anticipating independent with follow up as directed. Case Management to follow. Date Signed: 10/30/2018 12:22 PM Electronically Signed By:Kylee Nicholas RN
[2018-10-30] MEDS ORDERED: AMIODARONE HCL 100 ML IV ONE ×2 (12:45→13:00)
--- NOTE | 2018-10-30 18:15 | HOSPPROG ---
Hospitalist Progress Note Assessment/Plan: #Aflutter/Tachycardia in pt with hx of Afib -Had cardioversion per cards today #CHF, pulm vascular congestion #possible right sided pneumonia -No Leukocytosis or elevated procalcitonin -Pt reports clinically better since starting abx, will continue Rocephin #SIRS criteria: based on tachycardia and tachypnea that are more likely attributable to cardiac etiology #BPH: cont home meds #Weakness and Deconditioning: will obtain PT Dispo: monitor overnight. consider d/c tomorrow Subjective: still with some sob but better. no cp. Feels better. Had cardioversion Objective: Vital Signs Temp Pulse Resp BP Pulse Ox 37.1 C 74 14 115/60 93 10/30/18 15:37 10/30/18 15:37 10/30/18 15:37 10/30/18 15:37 10/30/18 15:37 Laboratory Results 10/30/18 04:15 10/30/18 04:15 10/29/18 10/30/18 10/31/18 05:59 05:59 05:59 Intake Total 990 1012 Output Total 1020 500 Balance -30 512 - Physical Exam Constitutional: no apparent distress Eyes: PERRL Ears, Nose, Mouth, Throat: moist mucous membranes, hearing normal Cardiovascular: regular rate and rhythym, No edema Respiratory: no respiratory distress, no rales or rhonchi, clear to auscultation Gastrointestinal: normoactive bowel sounds, soft, non-tender abdomen Skin: warm Neurologic: AAOx3 Psychiatric: interacting appropriately, not anxious, not encephalopathic Lymph, Heme, Immunologic: No petechiae ICD10 Worksheet Patient Problems: Problems Problem Status Onset Atrial flutter Acute Community acquired pneumonia Acute Sepsis Acute Atrial fibrillation Acute Palpitations Acute Syncope Acute
--- NOTE | 2018-10-30 18:25 | PDCARPN ---
<Marzena Grubbs - Last Filed: 10/31/18 11:20> Cardiology Progress Note Chief Complaint: Atrial tachycardia Assessment/Plan: Assessment: 1. Atrial tachycardia: Rhythm strip during adenosine administration this morning demonstrates likely 2:1 atrial tachycardia. He is is maintaining NSR with frequent PACs/bigeminy post-cardioversion today. Longstanding history of palpitations, including episodes of "tachycardia" during exercise as a child. 1 syncopal event about a year ago, frequent pre-syncope throughout his lifetime, worse over the past 10-15 years. 2. History of atrial flutter ablation 02/[address] De Anda 3. Atrial fibrillation: patient describes a history of AF requiring several cardioversions in the past. On Sotalol for rhythm control. ECGs prior to cardioversions at [facility] demonstrate AT rather than AF. Plan: Long discussion regarding options for management of Mr. Montanez atrial tachycardia, including medication management vs. ablation vs. watchful waiting. He would like to proceed with ablation at this time. We will get him scheduled for this procedure in November and he will call us if he experiences any new or concerning symptoms in the meantime. Recommend 30-day Prevent[employer] monitor for further evaluation of atrial fibrillation vs. AT 10/30/18 18:17 Objective: Vital Signs (8 Hrs) Temp Pulse Resp BP Pulse Ox 10/30/18 15:37 37.1 C 74 14 115/60 93 10/30/18 12:03 140 H 18 88/68 L 90 L 10/30/18 11:37 36.8 C 140 H 18 88/68 L 90 L 10/30/18 11:16 37.0 C 139 H 16 88/60 L 91 L Intake/Output (24 Hrs) 10/29/18 10/30/18 10/31/18 05:59 05:59 05:59 Intake Total 990 1012 Output Total 1020 500 Balance -30 512 Intake: Oral (ml) 990 960 IV Infused (ml) 52 cefTRIAXone 1 GM/DEXTROSE 52 50 ml @ 100 mls/hr IV DAILY [facility] Rx#:[id number] Output: Urine (ml) 1020 500 Urinal 1020 500 Other: Weight 113.6 kg 113.6 kg Intake Quantity Yes Sufficient Number of Voids Urinal 1 Result Diagrams: 10/30/18 04:15 10/30/18 04:15 - Physical Exam Constitutional: WDWN, healthy appearing, no apparent distress Ears, Nose, Mouth, Throat: moist mucous membranes, no oral ulcers, no thrush Cardiovascular: no murmurs, no rubs, no gallops, irregularly irregular Peripheral Pulses: 2+: dorsalis-pedis (R), dorsalis-pedis (L) Respiratory: other (cough) Gastrointestinal: normoactive bowel sounds, no tenderness, no masses Neurologic: AAOx3, CN II-XII grossly intact Psychiatric: cooperative, interactive, following commands, not anxious ICD10 Worksheet Patient Problems: Problems Problem Status Onset Atrial fibrillation Acute Atrial flutter Acute Community acquired pneumonia Acute Palpitations Acute Sepsis Acute Syncope Acute <Guicho Ag - Last Filed: 11/01/18 06:50> Cardiology Progress Note Assessment/Plan: Addendum Guicho Ag MD -patient seen and examined, case discussed with Marzena Grubbs NP. I have performed all relevant aspects of history, physical exam and review of systems. 1 episode of SVT terminated with carotid sinus massage. 2nd episode did not terminate with adenosine, required cardioversion. Plan is to obtain 1 month monitor to asses if he has AFIB. If no AFIB - plan ablation for AT, assess for reentrant SVT and ablate as necessary. Patient wants to schedule ablation in November. 11/01/18 06:46 Objective: Intake/Output (24 Hrs) 10/30/18 10/31/18 11/01/18 11:59 11:59 11:59 Intake Total 1042 1510 85 Output Total 1320 700 Balance -278 810 85 Intake: Oral (ml) 990 1510 IV Intake (ml) 30 IV Infused (ml) 52 55 cefTRIAXone 1 GM/DEXTROSE 52 55 50 ml @ 100 mls/hr IV DAILY [facility] Rx#:[id number] Output: Urine (ml) 1320 700 Urinal 1320 700 Other: Weight 113.6 kg 113.6 kg Intake Quantity Yes Sufficient Number of Voids Urinal 1 Result Diagrams: 10/30/18 04:15 10/30/18 04:15
--- NOTE | 2018-10-31 05:49 | CPIP ---
DIAGNOSIS: Atrial tachycardia versus atrial flutter. PROCEDURE PERFORMED: Transesophageal echocardiogram-guided cardioversion. INDICATIONS FOR PROCEDURE: The patient is a 68-year-old man who presented to the hospital ill with p neumonia and developed a sustained tachycardia. 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 This morning, he went back into an abnormal heart rhythm, and I treated him with an attempt at conversion with carotid massage which was unsuccessful, but during the period of pause created by the massage, it was clear that the patient has organized atrial activi ty in the range of 240-280 beats per minute, which may be consistent with a left atrial tachycardia o r flutter. For this reason, we decided to proceed with a HERNAN-guided cardioversion. PROCEDURE IN DETAIL: After informed consent was obtained, n.p.o. status was confirmed, the patient u nderwent a successful transesophageal echocardiogram. This demonstrated no evidence of spontaneous e cho contrast within the left atrium. There was no significant mitral regurgitation. The left atrial appendage was relatively small and had an increased flow Doppler signal on pulse Doppler which would be a reassuring finding which was greater than 80 cm/sec. The patient was also noted to have reduce d ejection fraction of the left ventricle suspected to be possibly due to a tachycardia-mediated myop athy which should be transient. After deep sedation had been achieved with the anesthesiologist who was present, the patient underwent initially, synchronized cardioversion with 300 joules of biphasic countershock delivered with patches in the anterior and posterior position with subsequent return of the rhythm to normal sinus for a brief period, patches in the anterior-posterior position with subseq uent return of the rhythm to normal sinus at a rate of 72 with a good blood pressure. The patient to lerated the procedure well and will receive EP consultation with Dr. Ag for a possible EP study and ablation. I would not be surprised if he has 2 things going on with his heart rhythm, 1 being a left atrial tachycardia as a residual of prior cardiac issues, as well as possible AV kristie re-entrant ta chycardia. I have discussed his case in detail with Dr. Ag directly, and the patient will be schedu led for an EP study and further evaluation and treatment once his pneumonia is resolved. Copy requested to: Dylon Dang Dr. /[id number]/MODL
[2018-10-31] MEDS: SOTALOL HCL 80 MG TAB PO SCH (09:58)
[2018-10-31] MEDS: METOPROLOL TARTRATE 25 MG TAB PO SCH (09:59)
[2018-10-31] MEDS: TAMSULOSIN HCL 0.4 MG CAP PO SCH (09:59)
--- NOTE | 2018-10-31 10:24 | CPEKG ---
Test Reason : OPEN Blood Pressure : / mmHG Vent. Rate : 069 BPM Atrial Rate : 070 BPM P-R Int : 143 ms QRS Dur : 173 ms QT Int : 491 ms P-R-T Axes : -10 091 011 degrees QTc Int : 526 ms Sinus rhythm Supraventricular bigeminy RBBB and LPFB Confirmed by Shay Shepherd ([id number]) on 10/31/2018 10:24:45 AM Referred By: Confirmed By:Shay Shepherd
--- NOTE | 2018-10-31 10:24 | CPEKG ---
Test Reason : OPEN Blood Pressure : / mmHG Vent. Rate : 070 BPM Atrial Rate : 070 BPM P-R Int : 141 ms QRS Dur : 175 ms QT Int : 467 ms P-R-T Axes : -18 101 -05 degrees QTc Int : 504 ms Sinus rhythm RBBB and LPFB Confirmed by Shay Shepherd ([id number]) on 10/31/2018 10:24:25 AM Referred By: Confirmed By:Shay Shepherd
--- NOTE | 2018-10-31 11:54 | PDCARPN ---
Cardiology Progress Note Chief Complaint: Palpitations/SOB Assessment/Plan: Assessment: Lauri is a 68 y/o M with a history of atrial arrhythmias and ablation for a.flutter 8 months. He has done well since then complaining of brief runs of tachycardia lasting 10 seconds. He presented to the hospital with SOB, productive cough, and tachyardia. He was found to have in a SVT which was either AVNRT or AT. He initially converted with carotid massage but was back in a SVT the following morning. He was given Adenosine and his underlying rhythm looked like AT. He was CV yesterday and given Amio. He is current in NSR with brief runs of SVT on tele. Plan: AT-EP consult with Dr. Ag. Plan for EP study and ablation in Nov. Pneumonia- on abx and feeling better. Ok to d/c from a cardiac standpoint. 10/31/18 12:18 Subjective: He had one episode of tachycardia last night that terminated with deep breaths. He denies any CP or SOB. Objective: Vital Signs (8 Hrs) Temp Pulse Resp BP Pulse Ox 10/31/18 09:59 60 122/70 H 10/31/18 07:04 36.4 C 58 L 18 110/60 95 10/31/18 04:00 36.9 C 63 21 H 117/58 L 94 Intake/Output (24 Hrs) 10/30/18 10/31/18 11/01/18 05:59 05:59 05:59 Intake Total 990 1562 Output Total 1020 1000 Balance -30 562 Intake: Oral (ml) 990 1510 IV Infused (ml) 52 cefTRIAXone 1 GM/DEXTROSE 52 50 ml @ 100 mls/hr IV DAILY [facility] Rx#:[id number] Output: Urine (ml) 1020 1000 Urinal 1020 1000 Other: Weight 113.6 kg 113.6 kg Intake Quantity Yes Sufficient Number of Voids Urinal 1 Result Diagrams: 10/30/18 04:15 10/30/18 04:15 Telemetry: Brief runs of SVT - Physical Exam Constitutional: WDWN Cardiovascular: regular rate and rhythm, no murmurs, no rubs Respiratory: clear to auscultate bilat, no crackles, no wheezes Skin: no edema Neurologic: AAOx3 ICD10 Worksheet Patient Problems: Problems Problem Status Onset Atrial flutter Acute Community acquired pneumonia Acute Sepsis Acute Atrial fibrillation Acute Palpitations Acute Syncope Acute
[2018-10-31 12:14] VITALS: BP 128/70
--- NOTE | 2018-10-31 14:16 | PDDCSUM ---
Discharge Summary Discharge Summary: Lauri is a 68 y/o M with a history of atrial arrhythmias and ablation for a.flutter 8 months. He has done well since then complaining of brief runs of tachycardia lasting 10 seconds. He presented to the hospital with SOB, productive cough, and tachyardia. He was found to have in a SVT which was either AVNRT or AT. He initially converted with carotid massage but was back in a SVT the following morning. He was given Adenosine and his underlying rhythm looked like AT. He was CV yesterday and given Amio. He is current in NSR with brief runs of SVT on tele. He has chosen to obtain ablation and will f/u with Cardiology in November His XR was also concerning for Pneumonia vs CHF and he was treated with antibiotic and one time Lasix. He will continue with Augmentin to complete a course DDX: #Aflutter/Tachycardia/SVT #mild pulm vascular congestion concerning for mild CHF-diastolic in nature. #possible right sided pneumonia #SIRS criteria: based on tachycardia and tachypnea that are more likely attributable to cardiac etiology #BPH: cont home meds #Weakness and Deconditioning: will obtain PT Exam: NAD AAOX3 RRR CTA B S/NT/ND MEDS: SEE MED REC F/U: CARDIOLOGY WILL SCHEDULE F/U APPT FOR ABLATION TOTAL TIME SPENT ON D/C IS 35 MINS
== END 2018-10-31 15:37 | disposition home or self-care (01) | DRG 308 ==
LOC: F2W 14:50
PROVIDERS: ADMIT Family Medicine; ATTEND Family Medicine
PROC: B246ZZ4 Ultrasonography of Right and Left Heart, Transesophageal (ICD-10-PCS; principal; 2018-10-30)
PROC: 5A2204Z Restoration of Cardiac Rhythm, Single (ICD-10-PCS; principal; 2018-10-30)
DX: I48.92 Unspecified atrial flutter (principal); J18.9 Pneumonia, unspecified organism; E86.0 Dehydration; I50.30 Unspecified diastolic (congestive) heart failure; N40.0 Benign prostatic hyperplasia without lower urinary tract symptoms
CPT/HCPCS: 82435-PO; 82565-PO; 82947-PO; 84132-PO; 84295-PO; 84484-PO; 84520-PO; 85014-PO; 96365; 97161-GP; G8978-GP-CI; G8979-GP-CI; J0153; J0282; J0461; J0696; J1940; J2704

== ENCOUNTER → 2018-12-04 | Outpatient (CLI) | payer OTHER, MEDICARE | LOC: BHFA 14:30 | PROVIDERS: ATTEND Internal Medicine Cardiovascular Disease | DX: I48.92 Unspecified atrial flutter (principal) ==